=== PATIENT | female | born 1955 | race Caucasian/White ===

== ENCOUNTER → 2016-08-11 | Outpatient (CLI) | payer MEDICARE, BC ==
[2016-08-11 10:18] LABS: Basophils # (A) 0.1 k/uL (0-0.2); Basophils % (A) 1 %; CH 28.9; CHCM 34.1; Eosinophils # (A) 0.1 k/uL (0-0.7); Eosinophils % (A) 1 %; HCT 45.1 % (34.0-46.0); HDW 2.63; HGB 14.7 gm/dL (11.4-16.0); Luc # (Auto) 0.18; Luc % (Auto) 2; Lymphocytes # (A) 2.9 k/uL (1.0-4.8); Lymphocytes % (A) 31 %; MCH 27.9 pg (25.0-35.0); MCHC 32.7 g/dL (31.0-37.0); MCV 85.3 fL (80.0-100.0); Mean Platelet Volume 6.6; Monocytes # (A) 0.6 k/uL (0-1.0); Monocytes % (A) 6 %; Neutrophils # (A) 5.6 k/uL (1.3-7.7); Neutrophils % (A) 59 %; RBC 5.29 m/uL (3.80-5.40); RDW 13.7 % (11.5-15.5); WBC 9.4 k/uL (3.8-10.6); WBC (Perox) 9.72
[2016-08-11 10:33] LABS: ALT 66 U/L (9-52); AST 56 U/L (14-36); Alkaline Phosphatase 76 U/L (38-126); Anion Gap 9 mmol/L; Blood Urea Nitrogen 20 mg/dL (7-17); Calcium 9.3 mg/dL (8.4-10.2); Carbon Dioxide 28 mmol/L (22-30); Chloride 104 mmol/L (98-107); Glucose 94 mg/dL (74-99); Non-African American GFR(MDRD) >60 (>60 ml/min/1.73 sqM); Potassium 3.8 mmol/L (3.5-5.1); Sodium 141 mmol/L (137-145); Total Bilirubin 0.6 mg/dL (0.2-1.3); Total Protein 7.4 g/dL (6.3-8.2)
[2016-08-11 11:40] LABS: Cancer Anitgen 125 <5.5 U/mL (<35.1)
== END | disposition home or self-care (01) ==
LOC: LABWHC1 09:52
PROVIDERS: ATTEND Internal Medicine Medical Oncology
DX: C50.419 Malignant neoplasm of upper-outer quadrant of unspecified female breast (principal); D50.9 Iron deficiency anemia, unspecified; K90.9 Intestinal malabsorption, unspecified
CPT/HCPCS: 36415; 80053; 85025; 86300; 86304

== ENCOUNTER → 2016-09-02 | Outpatient (CLI) | payer MEDICARE, BC ==
[2016-09-02 10:38] VITALS: BP 126/78; PULSE 82; TEMP 98.2; BMI 42.0
--- NOTE | 2016-09-02 11:35 | P.GSHP ---
History of Present Illness H&P Date: 09/02/16 61 years old female underwent laparoscopic sleeve gastrectomy and laparoscopic cholecystectomy on 08/21/2013. Patient is concerned about her weight regain. She still has many family issues right now. Her has chron's disease and bladder cancer. Her son is being treated for active Chron's and Ank spon. She has 2 dogs that keep her busy all the time. Recent CPAP adjustments . She has intermittent dysphagia with sensation of food getting stuck mid chest. PRE OP VISIT 08/01/2013 BMI 48.15, weight 134.4 KG's, height 66 inches, [place] Body Weight: 62kgs POST OP VISIT#1 08/21/2013 BMI 44.4, weight 124.6 KG's POST OP VISIT#2 09/27/2013 BMI 42.5, weight 119.5 KG's POST OP VISIT#3 10/18/2013 BMI 42.2, weight 118.5 KG's POST OP VISIT#4 11/29/2013 BMI 40.5, weight 113.9 KG's POST OP VISIT#5 03/07/2014 BMI 39.4, weight 110.7KG's POST OP VISIT#6 05/23/2014 BMI 39.7, weight 111.5KG's POST OP VISIT#7 08/22/2014 BMI 40.6, weight 111.5KG's POST OP VISIT#8 09/02/2016 BMI 42, weight 119.79KG's Past Medical History Past Medical History: Asthma, GERD/Reflux, Hypertension, Osteoarthritis (OA), Sleep Apnea/CPAP/BIPAP Additional Past Medical History / Comment(s): PRECANCER CELLS RT BREAST. , migraines,. anemia History of Any Multi-Drug Resistant Organisms: None Reported Past Surgical History: Bariatric Surgery, Breast Surgery, Cholecystectomy, Orthopedic Surgery Additional Past Surgical History / Comment(s): rt breast biopsy,. bilat CTR. bariatric sleeve 08/21/13,. rt knee surgery scope. egd 11/2013 Past Anesthesia/Blood Transfusion Reactions: No Reported Reaction Past Psychological History: Depression Smoking Status: Never smoker Past Alcohol Use History: None Reported Past Drug Use History: None Reported - Past Family History Brother(s) Family Medical History: Cancer Additional Family Medical History / Comment(s): Brother of colon ca. Medications and Allergies Home Medications Medication Instructions Recorded Confirmed Type Enalapril [Vasotec] 20 mg PO DAILY 07/31/13 09/02/16 History Fluticasone/Salmeterol [Advair 1 puff INHALATION Q12HR PRN 07/31/13 09/02/16 History 250-50 Diskus] Topiramate 100 mg PO BID 07/31/13 09/02/16 History Venlafaxine HCl [Effexor] 225 mg PO DAILY 07/31/13 09/02/16 History clonazePAM [KlonoPIN] 0.5 mg PO HS 07/31/13 09/02/16 History Multivitamins, Thera [Multivitamin] 1 each PO DAILY 08/29/13 09/02/16 History Esomeprazole Magnesium [NexIUM] 1 tab PO DAILY 09/02/16 09/02/16 History Allergies Allergy/AdvReac Type Severity Reaction Status Date / Time dander Allergy sneezing Uncoded 09/02/16 10:22 and watery eyes hayfever Allergy sneezing Uncoded 09/02/16 10:22 and watery eyes pollen Allergy sneezing Uncoded 09/02/16 10:22 and watery eyes Surgical - Exam Vital Signs Temp Pulse BP 98.2 F 82 126/78 09/02/16 10:21 09/02/16 10:21 09/02/16 10:21 General: Patient is alert and oriented to time, place and person and cooperative with exam. She is not in acute distress. HEENT: No pallor, no icterus, no thyroid enlargement, no cervical lymphadenopathy. Chest: Bilateral equal breath sounds present. No wheezes, no crackles. Cardiovascular: Regular rate and rhythm. Abdomen: Soft, nontender, nondistended. Well-healed surgical scars . No incisional hernias. Integumentary: No skin rash Neurologic: Cranial nerves II-XII intact. Strength upper and lower extremities 5/5. No focal neurologic deficits. Gait is normal. Psychiatric: No anxiety or psychosis. No suicidal thoughts. Patient is stressed about her home situation . She reports low energy levels.She is tearful and crying Assessment and Plan (1) Asthma Status: Chronic (2) Back pain, chronic Status: Chronic (3) Depression Status: Chronic (4) GERD (gastroesophageal reflux disease) Status: Chronic (5) Hypertension Status: Chronic (6) Morbid obesity with BMI of 40.0-44.9, adult Status: Chronic (7) Sleep apnea Status: Chronic Plan: 1. Dietary counselling. Decrease carbs and increase proteins 2. Continue daily MVI 3. Food diary 4. EGD with possible bx 5. Repeat labs 6. Continue CPAP with adjustments
== END | disposition home or self-care (01) ==
LOC: BARWHC3 09:28
PROVIDERS: ATTEND Surgery
DX: E66.01 Morbid (severe) obesity due to excess calories (principal); G47.30 Sleep apnea, unspecified; J45.909 Unspecified asthma, uncomplicated; F32.9 Major depressive disorder, single episode, unspecified; K21.9 Gastro-esophageal reflux disease without esophagitis; I10 Essential (primary) hypertension; M54.9 Dorsalgia, unspecified; Z68.41 Body mass index [BMI] 40.0-44.9, adult; Z98.84 Bariatric surgery status; Z79.899 Other long term (current) drug therapy
CPT/HCPCS: 99211

== ENCOUNTER → 2016-09-07 | Outpatient (CLI) | payer MEDICARE, BC ==
--- NOTE | 2016-09-07 12:26 | ECHOS ---
DATE OF SERVICE: 09/07/2016 AGE: 61Y SEX: F HT: 67 WT: 260 lbs. Protocol Jackson: X Others: Stress Echo Stage: III Dur. of Exercise: 7:45 *Heart Rate Blood Pressure *Rest: 79 Rest: 117/42 * *Max. Achieved: 141 Maximum BP: 187/62 85% PMHR: 134 100% PMHR: 158 *METS: 8.6 INDICATIONS: Dyspnea. MEDICATIONS: Effexor, Klonopin, Topamax. Patient was exercised for a total period of 7 minutes and 45 seconds. Peak heart rate of 141 was achieved. Maximum blood pressure of 187/62 mmHg was noted. Resting EKG shows normal sinus rhythm with normal PA interval and QRS duration and normal ST-T waves. No ST segment depression suggestive of ischemia is noted. Baseline echocardiographic images reveal normal left ventricular chamber size with normal left ventricular systolic function. In the immediate postexercise period, normal increase in the wall thickness and contractility is noted. FINAL IMPRESSION: This stress echocardiographic study is negative for stress-induced ischemia. EKG portion of the stress test is not suggestive of ischemia. Patient's exercise tolerance is average.
== END | disposition home or self-care (01) ==
LOC: RADNMMAIN 09:51
PROVIDERS: ATTEND Family Medicine
DX: R06.09 Other forms of dyspnea (principal)
CPT/HCPCS: 93017; 93350

== ENCOUNTER 2016-10-07 09:16 | Day surgery (SDC) | payer MEDICARE, BC ==
[2016-10-06 10:00] VITALS: BMI 41.9
[~2016-10-07 09:16] MED LIST: LACTATED RINGERS 1,000 ML IV SCH; LIDOCAINE 1% 20 ML VIAL (10MG/ML) FOR IV START INTRADERMA PRN
[2016-10-07 09:28] VITALS: RESP 18; TEMP 98
[2016-10-07] MEDS ORDERED: LACTATED RINGERS 1,000 ML IV ONE (09:28)
[2016-10-07] MEDS ORDERED: LIDOCAINE 1% INJ 10MG/ML (20 ML MDV) ONE (09:42)
[2016-10-07] MEDS ORDERED: PROPOFOL 10 MG/ML 20 ML VIAL IV ONE (09:42)
--- NOTE | 2016-10-07 09:46 | P.GSHP ---
History of Present Illness H&P Date: 10/07/16 61 years old female underwent laparoscopic sleeve gastrectomy and laparoscopic cholecystectomy on 08/21/2013. Patient is concerned about her weight regain. She still has many family issues right now. Her has chron's disease and bladder cancer. Her son is being treated for active Chron's and Ank spon. She has 2 dogs that keep her busy all the time. Recent CPAP adjustments . She has intermittent dysphagia with sensation of food getting stuck mid chest. PRE OP VISIT 08/01/2013 BMI 48.15, weight 134.4 KG's, height 66 inches, [place] Body Weight: 62kgs POST OP VISIT#1 08/21/2013 BMI 44.4, weight 124.6 KG's POST OP VISIT#2 09/27/2013 BMI 42.5, weight 119.5 KG's POST OP VISIT#3 10/18/2013 BMI 42.2, weight 118.5 KG's POST OP VISIT#4 11/29/2013 BMI 40.5, weight 113.9 KG's POST OP VISIT#5 03/07/2014 BMI 39.4, weight 110.7KG's POST OP VISIT#6 05/23/2014 BMI 39.7, weight 111.5KG's POST OP VISIT#7 08/22/2014 BMI 40.6, weight 111.5KG's POST OP VISIT#8 09/02/2016 BMI 42, weight 119.79KG's Past Medical History Past Medical History: Asthma, GERD/Reflux, Hypertension, Osteoarthritis (OA), Sleep Apnea/CPAP/BIPAP Additional Past Medical History / Comment(s): PRECANCER CELLS RT BREAST. , migraines,. anemia History of Any Multi-Drug Resistant Organisms: None Reported Past Surgical History: Bariatric Surgery, Breast Surgery, Cholecystectomy, Orthopedic Surgery Additional Past Surgical History / Comment(s): rt breast biopsy,. bilat CTR. bariatric sleeve 08/21/13,. rt knee surgery scope. egd 11/2013 Past Anesthesia/Blood Transfusion Reactions: No Reported Reaction Past Psychological History: Depression Smoking Status: Never smoker Past Alcohol Use History: None Reported Past Drug Use History: None Reported - Past Family History Brother(s) Family Medical History: Cancer Additional Family Medical History / Comment(s): Brother of colon ca. Medications and Allergies Home Medications Medication Instructions Recorded Confirmed Type Enalapril [Vasotec] 20 mg PO DAILY 07/31/13 09/02/16 History Fluticasone/Salmeterol [Advair 1 puff INHALATION Q12HR PRN 07/31/13 09/02/16 History 250-50 Diskus] Topiramate 100 mg PO BID 07/31/13 09/02/16 History Venlafaxine HCl [Effexor] 225 mg PO DAILY 07/31/13 09/02/16 History clonazePAM [KlonoPIN] 0.5 mg PO HS 07/31/13 09/02/16 History Multivitamins, Thera [Multivitamin] 1 each PO DAILY 08/29/13 09/02/16 History Esomeprazole Magnesium [NexIUM] 1 tab PO DAILY 09/02/16 09/02/16 History Allergies Allergy/AdvReac Type Severity Reaction Status Date / Time dander Allergy sneezing Uncoded 09/02/16 10:22 and watery eyes hayfever Allergy sneezing Uncoded 09/02/16 10:22 and watery eyes pollen Allergy sneezing Uncoded 09/02/16 10:22 and watery eyes Surgical - Exam General: Patient is alert and oriented to time, place and person and cooperative with exam. She is not in acute distress. HEENT: No pallor, no icterus, no thyroid enlargement, no cervical lymphadenopathy. Chest: Bilateral equal breath sounds present. No wheezes, no crackles. Cardiovascular: Regular rate and rhythm. Abdomen: Soft, nontender, nondistended. Well-healed surgical scars . No incisional hernias. Integumentary: No skin rash Neurologic: Cranial nerves II-XII intact. Strength upper and lower extremities 5/5. No focal neurologic deficits. Gait is normal. Psychiatric: No anxiety or psychosis. No suicidal thoughts. Patient is stressed about her home situation . She reports low energy levels.She is tearful and crying Assessment and Plan (1) Asthma Status: Chronic (2) Back pain, chronic Status: Chronic (3) Depression Status: Chronic (4) GERD (gastroesophageal reflux disease) Status: Chronic (5) Hypertension Status: Chronic (6) Morbid obesity with BMI of 40.0-44.9, adult Status: Chronic (7) Sleep apnea Status: Chronic Plan: 1. Dietary counselling. Decrease carbs and increase proteins 2. Continue daily MVI 3. Food diary 4. EGD with possible bx 5. Repeat labs 6. Continue CPAP with adjustments Past Medical History Past Medical History: Asthma, GERD/Reflux, Hypertension, Osteoarthritis (OA), Sleep Apnea/CPAP/BIPAP Additional Past Medical History / Comment(s): having increased reflux, PRECANCER CELLS RT BREAST, migraines, anemia History of Any Multi-Drug Resistant Organisms: None Reported Past Surgical History: Bariatric Surgery, Breast Surgery, Cholecystectomy, Orthopedic Surgery Additional Past Surgical History / Comment(s): rt breast biopsy,. bilat CTR. bariatric sleeve 08/21/13,. rt knee surgery scope. egd 11/2013 Past Anesthesia/Blood Transfusion Reactions: No Reported Reaction Smoking Status: Never smoker - Past Family History Brother(s) Family Medical History: Cancer Additional Family Medical History / Comment(s): Brother of colon ca. Medications and Allergies Home Medications Medication Instructions Recorded Confirmed Type Enalapril [Vasotec] 20 mg PO QAM 07/31/13 10/06/16 History Fluticasone/Salmeterol [Advair 1 puff INHALATION Q12HR PRN 07/31/13 10/06/16 History 250-50 Diskus] Topiramate 100 mg PO BID 07/31/13 10/06/16 History Venlafaxine HCl [Effexor] 150 mg PO QAM 07/31/13 10/06/16 History clonazePAM [KlonoPIN] 0.5 mg PO HS 07/31/13 10/06/16 History Multivitamins, Thera [Multivitamin] 1 each PO DAILY 08/29/13 10/06/16 History Esomeprazole Magnesium [NexIUM] 20 mg PO DAILY 09/02/16 10/07/16 History Venlafaxine HCl [Effexor] 75 mg PO HS 10/06/16 10/06/16 History Allergies Allergy/AdvReac Type Severity Reaction Status Date / Time sulfamethoxazole AdvReac Nausea & Verified 10/06/16 09:52 [From Bactrim] Vomiting trimethoprim [From Bactrim] AdvReac Nausea & Verified 10/06/16 09:52 Vomiting dander Allergy sneezing Uncoded 10/06/16 09:52 and watery eyes hayfever Allergy sneezing Uncoded 10/06/16 09:52 and watery eyes pollen Allergy sneezing Uncoded 10/06/16 09:52 and watery eyes Surgical - Exam Vital Signs Temp Pulse Resp BP Pulse Ox 98.0 F 89 18 141/89 97 10/07/16 09:27 10/07/16 09:27 10/07/16 09:27 10/07/16 09:27 10/07/16 09:27
--- NOTE | 2016-10-07 10:01 | P.OP ---
Date of Procedure: 10/07/16 Preoperative Diagnosis: Dysphagia Status post sleeve gastrectomy in 2013 Postoperative Diagnosis: Same Procedure(s) Performed: Esophagogastroduodenoscopy Implants: NA Anesthesia: MAC Surgeon: Linda Ellison Pathology: none sent Condition: stable Disposition: PACU Indications for Procedure: 61 years old female status post sleeve gastrectomy in 2014 presents with dysphagia. Informed consent obtained and patient elected to undergo EGD with possible biopsy. Operative Findings: Normal EGD. No reflux esophagitis. No obstruction. Description of Procedure: A timeout was performed to verify the correct patient and correct procedure. Patient was on continuous vitals and pulse ox monitoring throughout the procedure. She was placed in lateral decubitus position and an oral bite block was inserted. A well-lubricated Olympus upper endoscope was passed orally. The esophagus was intubated without difficulty. The vocal cords were visualised and protected at all times. The endoscope was passed beyond the pylorus into the first and second portion of the duodenum. No abnormality was noted in the duodenum mucosa. No mass, active ulcer or bleeding stigmata noted within the gastric lumen. The staple line was well healed. The GE junction is measured at 38 cm from the incisors . No evidence of reflux esophagitis. The endoscope was gradually withdrawn. No abnormality identified in the esophagus. Patient tolerated the procedure well and was taken to post anesthesia care unit in stable condition.
[2016-10-07 10:22] VITALS: BP 116/74; PULSE 63
== END 2016-10-07 10:40 | disposition home or self-care (01) ==
LOC: ORWHC2ENDO 09:16
PROVIDERS: ATTEND Surgery
DX: R13.10 Dysphagia, unspecified (principal); K21.9 Gastro-esophageal reflux disease without esophagitis; Z98.84 Bariatric surgery status; I10 Essential (primary) hypertension; G47.33 Obstructive sleep apnea (adult) (pediatric); Z99.89 Dependence on other enabling machines and devices; Z79.899 Other long term (current) drug therapy; Z88.2 Allergy status to sulfonamides
CPT/HCPCS: 43235; J2001; J2704

== ENCOUNTER → 2017-02-16 | Outpatient (CLI) | payer MEDICARE, BC ==
--- NOTE | 2017-02-16 09:47 | US ---
EXAMINATION TYPE: US abdomen complete DATE OF EXAM: 02/16/2017 COMPARISON: RENAL US CLINICAL HISTORY: R10.9 ABD PAIN. Patient stated has intermittent suprapubic pain; family HX of colon CA; on medication for HTN, depression, headaches, restless legs and takes a diuretic; gallbladder re moved; left renal cyst. EXAM MEASUREMENTS: Liver Length: 16.8 cm Gallbladder Wall: surgically removed CBD: 1.5 cm Spleen: 9.0 cm Right Kidney: 11.7 x 5.4 x 4.4 cm Left Kidney: 11.3 x 5.8 x 5.9 cm Pancreas: hyperechoic, tail obscured by overlying bowel gas Liver: fatty as is hyperechoic to right renal cortex and liver is attenuated posteriorly Gallbladder: surgically absent Evidence for sonographic Cardenas's sign: No CBD: wnl Spleen: wnl Right Kidney: No hydronephrosis or masses seen Left Kidney: exophytic upper pole cyst = 2.2 x 1.9 x 1.5cm Upper IVC: wnl Abd Aorta: size is wnl Suprapubic region at area of pain: no masses are seen, just overlying bowel gas is noted. IMPRESSION: 1. Hepatic steatosis versus diffuse hepatocellular disease. 2. Exophytic cyst upper pole left kidney.
--- NOTE | 2017-02-16 09:50 | US ---
EXAMINATION TYPE: US pelvic complete DATE OF EXAM: 02/16/2017 COMPARISON: US CLINICAL HISTORY: R10.9 ABD PAIN. Patient stated has intermittent suprapubic pain; family history of colon CA; ; post menopausal TECHNIQUE: Transvaginal (TV) as patient chose to have TV US instead of waiting for full bladder prep aration since bladder was nearly empty Date of LMP: NA EXAM MEASUREMENTS: Uterus: 7.1 x 3.9 x 2.7 cm Endometrial Stripe: 0.4 cm Right Ovary: 2.3 x 1.6 x 1.4 cm Left Ovary: not visualized 1. Uterus: Anteverted; hypoechoic oval area = 0.3 x 0.2 x 0.2cm is noted upper right myometrium and may be small uterine fibroid vs. complex cyst; multiple Nabothian cysts imaged in cervix and largest = 0.8 x 0.7 x 0.6cm 2. Endometrium: thickness is wnl post menopausal 3. Right Ovary: wnl; adjacent peristalsing bowel is noted 4. Left Ovary: not seen 5. Bilateral Adnexa: wnl 6. Posterior cul-de-sac: wnl IMPRESSION: 1. Small probable uterine leiomyoma versus a myometrial cyst. Cervical nabothian cysts. 2. Poor visualization of the left ovary.
== END | disposition home or self-care (01) ==
LOC: RADUSWWP 07:26
PROVIDERS: ATTEND Family Medicine
DX: N28.1 Cyst of kidney, acquired (principal); N88.8 Other specified noninflammatory disorders of cervix uteri
CPT/HCPCS: 76700; 76830

== ENCOUNTER → 2018-10-04 | Outpatient (CLI) | payer MEDICARE, BC ==
[2018-10-04 09:49] LABS: HCT 44.4 % (34.0-46.0); HGB 14.8 gm/dL (11.4-16.0); MCH 27.4 pg (25.0-35.0); MCHC 33.4 g/dL (31.0-37.0); MCV 81.9 fL (80.0-100.0); Mean Platelet Volume 6.5; Platelet Count 286 k/uL (150-450); RBC 5.42 m/uL (3.80-5.40); RDW 13.8 % (11.5-15.5); WBC 13.4 k/uL (3.8-10.6)
[2018-10-04 17:19] LABS: African American GFR (CKD) 78.3 (60.0-200.0); Albumin 4.6 g/dL (3.80-4.90); Anion Gap 14.9 mmol/L (4.00-12.00); BUN/Creat Ratio 18.89 Ratio (12.00-20.00); Calcium 9.4 mg/dL (8.7-10.3); Carbon Dioxide 22.1 mmol/L (21.6-31.8); Globulin 2.3 g/dL (1.6-3.3); Potassium 3.7 mmol/L (3.5-5.5); Total Bilirubin 0.4 mg/dL (0.3-1.2); Total Protein 6.9 g/dL (6.2-8.2)
[2018-10-04 17:23] LABS: Iron Saturation 28.62 (12.00-45.00)
[2018-10-04 17:26] LABS: T4, Free (Free Thyroxine) 1.2 ng/dL (0.80-1.80)
[2018-10-04 18:22] LABS: ACTH 14.6 pg/mL (0.00-45.99)
== END | disposition home or self-care (01) ==
LOC: LABWHC1 09:25
PROVIDERS: ATTEND Internal Medicine Endocrinology, Diabetes & Metabolism
DX: E27.3 Drug-induced adrenocortical insufficiency (principal); R53.83 Other fatigue; E61.1 Iron deficiency
CPT/HCPCS: 36415; 80053; 82024; 82533; 82607; 83540; 83550; 84439; 84443; 84481; 85027

== ENCOUNTER → 2018-12-22 | Outpatient (CLI) | payer MEDICARE, BC | END | disposition home or self-care (01) | LOC: LABWHC1 09:47 | PROVIDERS: ATTEND Internal Medicine Endocrinology, Diabetes & Metabolism | DX: E27.3 Drug-induced adrenocortical insufficiency (principal) | CPT/HCPCS: 36415; 82024; 82533 ==

== ENCOUNTER 2019-02-08 05:00 | Emergency (ER) | payer MEDICARE, BC ==
[2019-02-08 05:09] VITALS: RESP 18; TEMP 98.3
--- NOTE | 2019-02-08 05:57 | ED ---
Back Pain HPI - General Chief Complaint: Back Pain/Injury Stated Complaint: Headache, Back Pain Time Seen by Provider: 02/08/19 05:09 Source: patient Limitations: physical limitation - History of Present Illness Initial Comments: Alycia is a 63-year-old female who presents the ER today for evaluation of drainage from surgical incision. Patient reports that she had spinal surgery on January 19, she reports she's been healing well and doing well since the surgery. She only taken minimal pain medications. Patient reports that yesterday she noted some drainage from the lower part of her incision. She reports that throughout the day today she's had worsening pain around the incision, she's been unable to lay flat on her back secondary to pain. She reports she's had to change her pants twice due to drainage onto the back of her pants. Patient became concerned that she may have an infection so she came to the ER for further evaluation. Patient reports subjective fever but no measured fever, she also reports chills. - Related Data Home Medications Medication Instructions Recorded Confirmed Topiramate 100 mg PO BID 07/31/13 02/08/19 Atorvastatin [Lipitor] 20 mg PO DAILY 02/08/19 02/08/19 Enalapril [Vasotec] 5 mg PO DAILY 02/08/19 02/08/19 Esomeprazole Magnesium [NexIUM] 40 mg PO DAILY 02/08/19 02/08/19 Methocarbamol [Robaxin] 750 mg PO Q6HR PRN 02/08/19 02/08/19 Naproxen Sodium [Aleve] 440 mg PO DAILY PRN 02/08/19 02/08/19 Spironolactone 100 mg PO DAILY 02/08/19 02/08/19 Triamterene/Hydrochlorothiazid 1 tab PO DAILY 02/08/19 02/08/19 [Triamterene-Hctz 37.5-25 mg Tb] Venlafaxine HCl [Effexor XR] 300 mg PO DAILY 02/08/19 02/08/19 Previous Rx's Medication Instructions Recorded Cephalexin [Keflex] 500 mg PO Q6HR #28 cap 02/08/19 Allergies Allergy/AdvReac Type Severity Reaction Status Date / Time sulfamethoxazole AdvReac Nausea & Verified 02/08/19 07:23 [From Bactrim] Vomiting trimethoprim [From Bactrim] AdvReac Nausea & Verified 02/08/19 07:23 Vomiting dander Allergy sneezing Uncoded 10/06/16 09:52 and watery eyes hayfever Allergy sneezing Uncoded 02/08/19 05:09 and watery eyes pollen Allergy sneezing Uncoded 02/08/19 05:09 and watery eyes Review of Systems ROS Statement: Those systems with pertinent positive or pertinent negative responses have been documented in the HPI. ROS Other: All systems not noted in ROS Statement are negative. Past Medical History Past Medical History: Asthma, GERD/Reflux, Hypertension, Osteoarthritis (OA), Sleep Apnea/CPAP/BIPAP Additional Past Medical History / Comment(s): having increased reflux, PRECANCER CELLS RT BREAST, migraines, anemia History of Any Multi-Drug Resistant Organisms: None Reported Past Surgical History: Bariatric Surgery, Breast Surgery, Cholecystectomy, Orthopedic Surgery Additional Past Surgical History / Comment(s): rt breast biopsy,. bilat CTR. bariatric sleeve 08/21/13,. rt knee surgery scope. egd 11/2013 Past Anesthesia/Blood Transfusion Reactions: No Reported Reaction Past Psychological History: Depression Smoking Status: Never smoker Past Alcohol Use History: None Reported Past Drug Use History: None Reported - Past Family History Brother(s) Family Medical History: Cancer Additional Family Medical History / Comment(s): Brother of colon ca. General Exam - General Exam Comments Initial Comments: Physical Exam GENERAL: Patient is well-developed and well-nourished. appears uncomfortable HENT: Normocephalic, Atraumatic. EYES: PERRL, EOMI PULMONARY: Unlabored respirations. No audible rales rhonchi or wheezing was noted. CARDIOVASCULAR: There is a regular rate and rhythm without any murmurs gallops or rubs. ABDOMEN: Soft and nontender with normal bowel sounds. Obese SKIN: Well healing midline surgical incision over the lumbar spine, the lower one and a half centimeters of the incision is open with some minimal surrounding erythema, there is no purulence or malodorous discharge noted Copious amounts of serosanguineous discharge noted on patient's clothing : Deferred NEUROLOGIC: Patient is alert and oriented x3. Moving all extremities spontaneously MUSCULOSKELETAL: Normal extremities with adequate strength and full range of motion. No lower extremity swelling or edema. No calf tenderness. PSYCHIATRIC: Normal psychiatric evaluation. Limitations: physical limitation Course Vital Signs 02/08/19 02/08/19 02/08/19 05:01 08:24 09:00 Temperature 98.3 F Pulse Rate 98 78 78 Respiratory 18 18 18 Rate Blood Pressure 131/85 111/53 128/70 O2 Sat by Pulse 100 100 100 Oximetry 02/08/19 02/08/19 11:00 12:00 Temperature Pulse Rate 78 70 Respiratory 18 18 Rate Blood Pressure 138/70 154/70 O2 Sat by Pulse 100 100 Oximetry Medical Decision Making - Medical Decision Making The patient was seen and evaluated, history is obtained from the patient, family member at bedside and medical records which show patient has at bedside as well Patient with drainage from her lumbar spinal surgery incision. There is minimal surrounding erythema, no malodorous discharge, no obvious purulent however given the patient's complaints a septic workup and computed tomography scan with contrast will be ordered. Labs resulted with significant leukocytosis, very mild lactic acidosis. Given these findings alone decision was made to treat empirically with antibiotics. Broad-spectrum antibiotics vancomycin and cefepime were ordered. The patient was also noted to have some elevated BUN and creatinine, additional IV fluids were ordered prior to computed tomography scan of the lumbar spine with contrast. CT imaging resulted with expected postsurgical changes, no signs of significant inflammation or abscess formation. Patient's surgeon Dr. Darryl Dupont was contacted. Labs and imaging results were discussed with Dr. Dupont. With the patient'S permission, photographs were taken of her incision and transmitted to her surgeon. He evaluated the sudden photographs and agreed with plan for IV antibiotics in the emergency Department, discharged home on oral Keflex, advised her to contact his office on Wednesday morning for follow-up. This plan was discussed with the patient who is in agreement and expressed relief that she did not have to be transferred to [facility] at this time. All questions pertaining care were answered, return parameters were discussed and the patient was discharged home in stable cond ition. - Lab Data Result diagrams: 02/08/19 05:57 02/08/19 05:57 Lab Results 02/08/19 02/08/19 02/08/19 Range/Units 05:54 05:57 05:57 WBC 22.8 H (3.8-10.6) k/uL RBC 5.19 (3.80-5.40) m/uL Hgb 15.0 (11.4-16.0) gm/dL Hct 42.5 (34.0-46.0) % MCV 81.9 (80.0-100.0) fL MCH 28.8 (25.0-35.0) pg MCHC 35.2 (31.0-37.0) g/dL RDW 13.2 (11.5-15.5) % Plt Count 286 (150-450) k/uL Neutrophils % 81 % Lymphocytes % 12 % Monocytes % 3 % Eosinophils % 3 % Basophils % 0 % Neutrophils # 18.3 H (1.3-7.7) k/uL Lymphocytes # 2.6 (1.0-4.8) k/uL Monocytes # 0.7 (0-1.0) k/uL Eosinophils # 0.7 (0-0.7) k/uL Basophils # 0.1 (0-0.2) k/uL Sodium 139 (137-145) mmol/L Potassium 4.1 (3.5-5.1) mmol/L Chloride 101 (98-107) mmol/L Carbon Dioxide 24 (22-30) mmol/L Anion Gap 14 mmol/L BUN 31 H (7-17) mg/dL Creatinine 1.20 H (0.52-1.04) mg/dL Est GFR (CKD-EPI)AfAm 55 (>60 ml/min/1.73 sqM) Est GFR (CKD-EPI)NonAf 48 (>60 ml/min/1.73 sqM) Glucose 150 H (74-99) mg/dL Lactic Ac Sepsis Rflx Plasma Lactic Acid Nikhil (0.7-2.0) mmol/L Calcium 9.7 (8.4-10.2) mg/dL Total Bilirubin 1.0 (0.2-1.3) mg/dL AST 25 (14-36) U/L ALT 31 (9-52) U/L Alkaline Phosphatase 77 (38-126) U/L Total Protein 7.6 (6.3-8.2) g/dL Albumin 4.3 (3.5-5.0) g/dL Urine Color Yellow Urine Appearance Cloudy H (Clear) Urine pH 5.5 (5.0-8.0) Ur Specific [place] 1.036 H (1.001-1.035) Urine Protein Trace H (Negative) Urine Glucose (UA) Negative (Negative) Urine Ketones Trace H (Negative) Urine Blood Negative (Negative) Urine Nitrite Negative (Negative) Urine Bilirubin Negative (Negative) Urine Urobilinogen 2.0 (<2.0) mg/dL Ur Leukocyte Esterase Moderate H (Negative) Ur Squamous Epith Cells <1 (0-4) /hpf 02/08/19 02/08/19 Range/Units 05:57 06:33 WBC (3.8-10.6) k/uL RBC (3.80-5.40) m/uL Hgb (11.4-16.0) gm/dL Hct (34.0-46.0) % MCV (80.0-100.0) fL MCH (25.0-35.0) pg MCHC (31.0-37.0) g/dL RDW (11.5-15.5) % Plt Count (150-450) k/uL Neutrophils % % Lymphocytes % % Monocytes % % Eosinophils % % Basophils % % Neutrophils # (1.3-7.7) k/uL Lymphocytes # (1.0-4.8) k/uL Monocytes # (0-1.0) k/uL Eosinophils # (0-0.7) k/uL Basophils # (0-0.2) k/uL Sodium (137-145) mmol/L Potassium (3.5-5.1) mmol/L Chloride (98-107) mmol/L Carbon Dioxide (22-30) mmol/L Anion Gap mmol/L BUN (7-17) mg/dL Creatinine (0.52-1.04) mg/dL Est GFR (CKD-EPI)AfAm (>60 ml/min/1.73 sqM) Est GFR (CKD-EPI)NonAf (>60 ml/min/1.73 sqM) Glucose (74-99) mg/dL Lactic Ac Sepsis Rflx Y Plasma Lactic Acid Nikhil 2.4 H* (0.7-2.0) mmol/L Calcium (8.4-10.2) mg/dL Total Bilirubin (0.2-1.3) mg/dL AST (14-36) U/L ALT (9-52) U/L Alkaline Phosphatase (38-126) U/L Total Protein (6.3-8.2) g/dL Albumin (3.5-5.0) g/dL Urine Color Urine Appearance (Clear) Urine pH (5.0-8.0) Ur Specific [place] (1.001-1.035) Urine Protein (Negative) Urine Glucose (UA) (Negative) Urine Ketones (Negative) Urine Blood (Negative) Urine Nitrite (Negative) Urine Bilirubin (Negative) Urine Urobilinogen (<2.0) mg/dL Ur Leukocyte Esterase (Negative) Ur Squamous Epith Cells (0-4) /hpf Disposition Clinical Impression: Post-operative pain Disposition: HOME SELF-CARE Condition: Stable Instructions (If sedation given, give patient instructions): Cellulitis (DC) Additional Instructions: Call Dr Dupont's office on Wednesday morning to arrange follow up Prescriptions: Cephalexin [Keflex] 500 mg PO Q6HR #28 cap Is patient prescribed a controlled substance at d/c from ED?: No Referrals: Carter Sarmiento MD [Primary Care Provider] - 1-2 days
[2019-02-08] MEDS: SODIUM CHLORIDE 0.9% 500 ML 500 ML IV SCH (06:08)
[2019-02-08 06:17] LABS: Basophils # (A) 0.1 k/uL (0-0.2); Basophils % (A) 0 %; Eosinophils # (A) 0.7 k/uL (0-0.7); Eosinophils % (A) 3 %; HCT 42.5 % (34.0-46.0); Lymphocytes # (A) 2.6 k/uL (1.0-4.8); Lymphocytes % (A) 12 %; MCH 28.8 pg (25.0-35.0); MCHC 35.2 g/dL (31.0-37.0); MCV 81.9 fL (80.0-100.0); Mean Platelet Volume 5.9; Monocytes # (A) 0.7 k/uL (0-1.0); Monocytes % (A) 3 %; Neutrophils # (A) 18.3 k/uL (1.3-7.7); Neutrophils % (A) 81 %; Platelet Count 286 k/uL (150-450); RBC 5.19 m/uL (3.80-5.40); RDW 13.2 % (11.5-15.5); WBC 22.8 k/uL (3.8-10.6)
[2019-02-08 06:25] LABS: Appearance,Urine Cloudy (Clear); Bilirubin,Urine Negative (Negative); Blood,Urine Negative (Negative); Color,Urine Yellow; Glucose,Urine (UA) Negative (Negative); Ketones,Urine Trace (Negative); Leukocyte Esterase,Urine Moderate (Negative); Nitrite,Urine Negative (Negative); PH, Urine 5.5 (5.0-8.0); Protein,Urine Trace (Negative); Specific Gravity,Urine 1.036 (1.001-1.035); Squamous Epithelial Cell,Urine <1 /hpf (0-4)
[2019-02-08 06:29] LABS: Albumin 4.3 g/dL (3.5-5.0); Calcium 9.7 mg/dL (8.4-10.2); Potassium 4.1 mmol/L (3.5-5.1); Total Protein 7.6 g/dL (6.3-8.2)
[2019-02-08] MEDS ORDERED: SODIUM CHLORIDE 0.9% 1,000 ML IV ONE (06:36)
[2019-02-08] MEDS ORDERED: CEFEPIME 1 GM in SODIUM CHLORIDE 0.9% 50 ML IVPB STA (06:37)
[2019-02-08] MEDS ORDERED: VANCOMYCIN IV PER PHARMACY 1 EACH MISC MISCELLANE PRN (06:37)
[2019-02-08] MEDS ORDERED: VANCOMYCIN 1,750 MG in SODIUM CHLORIDE 0.9% 500 ML 500 ML IVPB STA (06:39)
--- NOTE | 2019-02-08 07:08 | CT ---
EXAMINATION TYPE: CT lumbar spine w con DATE OF EXAM: 02/08/2019 COMPARISON: None HISTORY: low back pain, drainage from surgical site, back surgery [address] DLP: 2294.6 mGycm Automated exposure control for dose reduction was used. CONTRAST: CT scan of the lumbar is performed with IV Contrast, patient injected with 100 mL of Isovue 300. Multiple axial sections were obtained from T12 to S2 vertebra without contrast. There is laminectomy defect at L2 L3 L4 levels. There is subcutaneous fluid over the posterior lumbar spine from recent surgery. There is no compression fracture. There is no subluxation. There is vacuu m disc at L3-4 L4-5 and L5-S1. There is mild hypertrophic facet arthropathy in the mid and lower lumb ar spine. I see no focal bone destruction. There is no lumbar paraspinal mass. There are moderate pos terior calcified disc herniations at L2-3 L3-4. I see no pathologic enhancement. IMPRESSION: Postsurgical changes with subcutaneous fluid and edema over the posterior lumbar spine. Multilevel la minectomy. No evidence for epidural abscess at the surgery sites. Large posterior disc herniations. N o fracture. No sign of osteomyelitis. No paraspinal abscess.
[2019-02-08 12:02] VITALS: BP 154/70; PULSE 70
[2019-02-09] MEDS ORDERED: VANCOMYCIN 1,750 MG in SODIUM CHLORIDE 0.9% 500 ML 500 ML IVPB SCH (06:00)
== END 2019-02-08 12:00 | disposition home or self-care (01) ==
LOC: EC 05:00
DX: G89.18 Other acute postprocedural pain (principal); M54.9 Dorsalgia, unspecified; L76.82 Other postprocedural complications of skin and subcutaneous tissue; D72.829 Elevated white blood cell count, unspecified; E87.2 Acidosis; R79.89 Other specified abnormal findings of blood chemistry; K21.9 Gastro-esophageal reflux disease without esophagitis; I10 Essential (primary) hypertension; M19.90 Unspecified osteoarthritis, unspecified site; G47.30 Sleep apnea, unspecified; F32.9 Major depressive disorder, single episode, unspecified; Z88.2 Allergy status to sulfonamides; Z91.048 Other nonmedicinal substance allergy status; Z79.1 Long term (current) use of non-steroidal anti-inflammatories (NSAID); Z79.899 Other long term (current) drug therapy; Z86.69 Personal history of other diseases of the nervous system and sense organs; Z99.89 Dependence on other enabling machines and devices
CPT/HCPCS: 36415; 80053; 83605; 85025; 81001; 87040; 87077; 87186; 72132; 99284; 96365; 96367; 96366 ×2; 96361; J3370; J0692; Q9967

== ENCOUNTER → 2019-04-12 | Outpatient (CLI) | payer MEDICARE, BC ==
[2019-04-12 13:08] VITALS: BP 101/71; PULSE 83; RESP 16; TEMP 98.3; BMI 41.8
--- NOTE | 2019-04-12 14:00 | P.HPBAR ---
Bariatric H&P - History & Physicial H&P Date: 04/12/19 History & Physicial: Visit/CC: Sleeve f/u /Dr. Ellison Patient initial contact: Initial weight: 134.445 kg Initial weight in pounds: 296.40 Height: 5 ft 6.5 in Initial BMI: 47.1 Last weight: Current weight: 119.295 kg Current weight in pounds: 263.00 Current BMI: 41.8 [place] body weight (based on NIH guidelines): 60.101 kg Excess body weight loss: 20.3% The patient is a 63 year-old F who presents for Bariatric Assessment. HPI: Dr. Ellison did sleeve, 2013. Her highest weight was 303 pounds. Lowest weight was 240 pounds. She had back surgery with steroids. She reports heartburn that was present before and after surgery. She reports her reflux disease is worse. Her gallbladder was removed at the time of her bariatric surgery. She reports epigastric pain that is moderate to severe after eating. She uses a heating pad for comfort. She tried a probiotic that helps. She reports having diarrhea now. Her last colonoscopy was over 6 to 7 years ago. She is due for colonoscopy. Her brother of colon cancer. She reports numbness of the right leg that was present. She reports poor memory. She is not taking her multivitamin. Her protein intake is low. She reports social stressors. ASSESSMENT: 1. Morbid obeity PLAN: 1. Get bariatric labs. 2. Due for a colonoscopy screen 3. Recommend upper scope. Past Medical History Past Medical History: Asthma, GERD/Reflux, Hypertension, Osteoarthritis (OA), Sleep Apnea/CPAP/BIPAP Additional Past Medical History / Comment(s): having increased reflux, PRECANCER CELLS RT BREAST, migraines, anemia History of Any Multi-Drug Resistant Organisms: None Reported Past Surgical History: Bariatric Surgery, Breast Surgery, Cholecystectomy, Orthopedic Surgery Additional Past Surgical History / Comment(s): rt breast biopsy,. bilat CTR. bariatric sleeve 08/21/13,. rt knee surgery scope. egd 11/2013. 01/18/19: L4-5-6 laminectomies Past Anesthesia/Blood Transfusion Reactions: No Reported Reaction Past Psychological History: Depression Smoking Status: Never smoker Past Alcohol Use History: None Reported Past Drug Use History: None Reported - Past Family History Brother(s) Family Medical History: Cancer Additional Family Medical History / Comment(s): Brother of colon ca. Surgical - Exam Vital Signs Temp Pulse Resp BP 98.3 F 83 16 101/71 04/12/19 13:05 04/12/19 13:05 04/12/19 13:05 04/12/19 13:05 Bariatric Checklist Checklist: Plan: Checklist: EGD: 1. Hiatal hernia: 2. H. Pylori: HgbA1c: Vitamin D: Smoking: Never smoker Primary care physician referral: dr godinez Psychiatry clearance: Cardiology clearance: Sleep study: Diet journal: VTE risk score: VTE risk level: Rehab needs at discharge:
[2019-04-12 14:40] LABS: HCT 45.9 % (34.0-46.0); HGB 15.2 gm/dL (11.4-16.0); MCH 27.7 pg (25.0-35.0); MCHC 33.1 g/dL (31.0-37.0); MCV 83.6 fL (80.0-100.0); Mean Platelet Volume 6.9; Platelet Count 281 k/uL (150-450); RBC 5.49 m/uL (3.80-5.40); RDW 13.1 % (11.5-15.5); WBC 9.7 k/uL (3.8-10.6)
[2019-04-12 14:51] LABS: INR 0.9 (<1.2); Partial Thromboplastin Time 22.6 sec (22.0-30.0); Prothrombin Time 9.5 sec (9.0-12.0)
[2019-04-12 19:21] LABS: % Iron Saturation 25.58 (12.00-45.00); African American GFR (CKD) 61.4 (60.0-200.0); Albumin 4.7 g/dL (3.80-4.90); Albumin/Globulin Ratio 2.04 (1.60-3.17); Anion Gap 9.2 mmol/L (4.00-12.00); BUN/Creat Ratio 23.64 Ratio (12.00-20.00); Calcium 9.7 mg/dL (8.7-10.3); Carbon Dioxide 26.8 mmol/L (21.6-31.8); Chol/HDL Ratio 4.11; Globulin 2.3 g/dL (1.6-3.3); LDL Cholesterol,Calculated 115.8 mg/dL (0.0-131.0); Phosphorus 4.2 mg/dL (2.4-5.1); Potassium 4.5 mmol/L (3.5-5.5); Total Bilirubin 0.3 mg/dL (0.3-1.2); VLDL Calculation 58.2 mg/dL (5.00-40.00)
[2019-04-12 19:28] LABS: Ferritin 65.3 ng/mL (10.0-291.0)
[2019-04-12 19:56] LABS: Folate, Serum 19.1 ng/mL
[2019-04-12 20:02] LABS: Hemoglobin A1C 5.6 % (4.0-6.0)
[2019-04-14 11:04] LABS: Zinc, Serum 58 ug/dL (60-130)
[2019-04-14 15:16] LABS: Vitamin A 70 ug/dL (38-106)
[2019-04-16 01:20] LABS: Selenium 120 mcg/L (63-160)
[2019-04-17 08:31] LABS: Vit B1(Thiamine) 70 ug/L (38-122)
== END | disposition home or self-care (01) ==
LOC: BARWHC3 12:39
PROVIDERS: ATTEND Surgery Plastic and Reconstructive Surgery
DX: Z48.815 Encounter for surgical aftercare following surgery on the digestive system (principal); E66.01 Morbid (severe) obesity due to excess calories; Z68.41 Body mass index [BMI] 40.0-44.9, adult; Z98.84 Bariatric surgery status; Z90.49 Acquired absence of other specified parts of digestive tract; E21.1 Secondary hyperparathyroidism, not elsewhere classified; E89.1 Postprocedural hypoinsulinemia; D50.9 Iron deficiency anemia, unspecified; K90.9 Intestinal malabsorption, unspecified; E55.9 Vitamin D deficiency, unspecified; K76.9 Liver disease, unspecified; N19 Unspecified kidney failure; K50.90 Crohn's disease, unspecified, without complications
CPT/HCPCS: 84255; 84134; 84425; 80061; 80053; 82607; 82728; 82525; 82746; 83540; 83550; 83735; 84100; 84443; 84590; 84630; 85027; 85610; 85730; 82306; 83970; 83036; G0463; 99211

== ENCOUNTER 2019-05-01 11:22 | Day surgery (SDC) | payer MEDICARE, BC ==
[2019-04-27 13:50] VITALS: BMI 41.8
--- NOTE | 2019-05-01 07:39 | P.GSHP ---
History of Present Illness H&P Date: 05/01/19 CHIEF COMPLAINT: GERD and colon screen HISTORY OF PRESENT ILLNESS: The patient is a 63-year-old female who presents with gastroesophageal reflux disease and need for colon screen. Upper and lower endoscopy were offered for further evaluation and management. PAST MEDICAL HISTORY: Please see list. PAST SURGICAL HISTORY: Please see list. MEDICATIONS: Please see list. ALLERGIES: Please see list. SOCIAL HISTORY: No illicit drug use FAMILY HISTORY: No reports of Crohn disease or ulcerative colitis. REVIEW OF ORGAN SYSTEMS: CONSTITUTIONAL: No reports of fevers or chills. GI: Denies any blood in stools or constipation. PHYSICAL EXAM: VITAL SIGNS: Stable GENERAL: Well-developed pleasant in no acute distress. HEENT: No scleral icterus. Extraocular movements grossly intact. Moist buccal mucosa. NECK: Supple without lymphadenopathy. CHEST: Unlabored respirations. Equal bilateral excursions. CARDIOVASCULAR: Regular rate and rhythm. Distal 2+ pulses. ABDOMEN: Soft, nondistended. MUSCULOSKELETAL: No clubbing, cyanosis, or edema. ASSESSMENT: 1. Gastroesophageal reflux disease 2. Colon screen. PLAN: 1. Recommend proceeding with an upper and lower endoscopy Past Medical History Past Medical History: Asthma, GERD/Reflux, Hypertension, Osteoarthritis (OA), Sleep Apnea/CPAP/BIPAP Additional Past Medical History / Comment(s): having increased reflux, PRECANCER CELLS RT BREAST, migraines, anemia History of Any Multi-Drug Resistant Organisms: None Reported Past Surgical History: Back Surgery, Bariatric Surgery, Breast Surgery, Cholecystectomy, Orthopedic Surgery Additional Past Surgical History / Comment(s): rt breast biopsy,. bilat CTR. bariatric sleeve 08/21/13,. rt knee surgery scope. egd 11/2013. 01/18/19: L 4-5-6 laminectomies Past Anesthesia/Blood Transfusion Reactions: No Reported Reaction Smoking Status: Never smoker - Past Family History Brother(s) Family Medical History: Cancer Additional Family Medical History / Comment(s): Brother of colon ca. Medications and Allergies Home Medications Medication Instructions Recorded Confirmed Type Topiramate 100 mg PO BID 07/31/13 04/27/19 History Atorvastatin [Lipitor] 20 mg PO DAILY 02/08/19 04/27/19 History Enalapril [Vasotec] 5 mg PO QAM 02/08/19 04/27/19 History Esomeprazole Magnesium [NexIUM] 40 mg PO DAILY 02/08/19 04/27/19 History Methocarbamol [Robaxin] 750 mg PO Q6HR PRN 02/08/19 04/27/19 History Naproxen Sodium [Aleve] 440 mg PO DAILY PRN 02/08/19 04/27/19 History Spironolactone 100 mg PO DAILY 02/08/19 04/27/19 History Triamterene/Hydrochlorothiazid 1 tab PO DAILY 02/08/19 04/27/19 History [Triamterene-Hctz 37.5-25 mg Tb] Venlafaxine HCl [Effexor XR] 300 mg PO QAM 02/08/19 04/27/19 History Multivitamin [Multivitamins Adult 1 tab PO DAILY 04/12/19 04/27/19 History Gummies] Allergies Allergy/AdvReac Type Severity Reaction Status Date / Time sulfamethoxazole AdvReac Nausea & Verified 04/27/19 13:44 [From Bactrim] Vomiting trimethoprim [From Bactrim] AdvReac Nausea & Verified 04/27/19 13:44 Vomiting dander Allergy sneezing Uncoded 04/27/19 13:44 and watery eyes hayfever Allergy sneezing Uncoded 04/27/19 13:44 and watery eyes pollen Allergy sneezing Uncoded 04/27/19 13:44 and watery eyes
[~2019-05-01 11:22] MED LIST changes: -LIDOCAINE 1% 20 ML VIAL (10MG/ML) FOR IV START INTRADERMA PRN
[2019-05-01 11:46] VITALS: TEMP 98.8
[2019-05-01] MEDS ORDERED: PROPOFOL 10 MG/ML 20 ML VIAL IV ONE (12:15)
[2019-05-01] MEDS ORDERED: LIDOCAINE 1% INJ 10MG/ML (20 ML MDV) ONE (12:15)
--- NOTE | 2019-05-01 12:37 | P.PCN ---
Date of Procedure: 05/01/19 Description of Procedure: PREOPERATIVE DIAGNOSIS: Gastroesophageal reflux disease. Morbid obesity. POSTOPERATIVE DIAGNOSIS: Morbid obesity. Gastritis. Gastroesophageal reflux disease. History of sleeve gastrectomy OPERATION: Esophagogastroduodenoscopy with biopsies along antrum. SURGEON: Laura Simental MD ANESTHESIA: MAC. INDICATIONS: The patient is a 63-year-old female who presents with a history of reflux disease. Benefits and risks of the procedure were described. Informed consent was obtained. DESCRIPTION: The patient was brought into the endoscopy suite and laid in the left lateral decubitus position. An Olympus gastroscope was passed along the posterior oropharynx down to the distal esophagus where the squamocolumnar junction was encountered at 40 cm from the incisors. The stomach was entered and no bile reflux was found. Additional findings are listed below. Biopsies with cold forceps were obtained of the antrum. The first through third portion of the duodenum was examined and unremarkable. Retroflexion of the scope was limited by her sleeve gastrectomy. The squamocolumnar junction demonstrated LA grade A erosive esophagitis. The stomach was desufflated. The patient tolerated the procedure well. FINDINGS: Squamocolumnar junction 40 cm from the incisors. Diaphragmatic hiatus at 40 cm. Hill grade unable to obtain due to sleeve gastrectomy LA grade A erosive esophagitis. No active duodenitis. Chronic gastritis RECOMMENDATIONS: Upper endoscopy as needed.
--- NOTE | 2019-05-01 12:51 | P.OP ---
Date of Procedure: 05/01/19 Description of Procedure: PREOPERATIVE DIAGNOSIS: Family history colon cancer, brother Colonoscopy screening. POSTOPERATIVE DIAGNOSIS: Family history colon cancer, brother Colonoscopy screening. OPERATION: Colonoscopy to the ileocecal valve and appendiceal orifice. SURGEON: Laura Simental MD. ANESTHESIA: MAC. INDICATIONS: The patient is a 63-year-old female who presents for colonoscopy screening. Last colonoscopy over 5 years ago. Benefits and risks were described and informed consent was obtained. DESCRIPTION OF PROCEDURE: The patient had undergone Suprep. She had been brought into the operating room and laid in the left lateral decubitus position. After adequate intravenous sedation, the rectum was examined with 2% lidocaine jelly. No external hemorrhoids were encountered. The rectal tone was within normal limits. No lesions were palpated in the rectal vault. An Olympus colonoscope was advanced until the ileocecal valve and appendiceal orifice were clearly viewed. The prep was excellent with clear visualization of the mucosal folds. The scope was removed with visualization of each mucosal fold. No scattered diverticulosis was encountered. No large colonic polyps were found. No evidence of focal colitis was found. Retroflexion of the scope demonstrated grade 1 internal hemorrhoids without active bleeding or inflammation. The colon was desufflated. The patient had tolerated the procedure well. Withdrawal time was over 6 minutes. FINDINGS: Aronchick preparation quality scale (1-5) Internal hemorrhoids, grade 1 No external prolapsed hemorrhoids. No arteriovenous malformations. No adenomatous polyps. No focal colitis. RECOMMENDATIONS: Lower endoscopy in 5 years, 2024 Plan - Discharge Summary New Discharge Prescriptions: Continue Topiramate 100 mg PO BID Spironolactone 100 mg PO DAILY Triamterene/Hydrochlorothiazid [Triamterene-Hctz 37.5-25 mg Tb] 1 tab PO DAILY Naproxen Sodium [Aleve] 440 mg PO DAILY PRN PRN Reason: Pain Methocarbamol [Robaxin] 750 mg PO Q6HR PRN PRN Reason: Spasms Atorvastatin [Lipitor] 20 mg PO DAILY Esomeprazole Magnesium [NexIUM] 40 mg PO DAILY Enalapril [Vasotec] 5 mg PO QAM Venlafaxine HCl [Effexor XR] 300 mg PO QAM Multivitamin [Multivitamins Adult Gummies] 1 tab PO DAILY Discharge Medication List Topiramate 100 mg PO BID 07/31/13 [History] Atorvastatin [Lipitor] 20 mg PO DAILY 02/08/19 [History] Enalapril [Vasotec] 5 mg PO QAM 02/08/19 [History] Esomeprazole Magnesium [NexIUM] 40 mg PO DAILY 02/08/19 [History] Methocarbamol [Robaxin] 750 mg PO Q6HR PRN 02/08/19 [History] Naproxen Sodium [Aleve] 440 mg PO DAILY PRN 02/08/19 [History] Spironolactone 100 mg PO DAILY 02/08/19 [History] Triamterene/Hydrochlorothiazid [Triamterene-Hctz 37.5-25 mg Tb] 1 tab PO DAILY 02/08/19 [History] Venlafaxine HCl [Effexor XR] 300 mg PO QAM 02/08/19 [History] Multivitamin [Multivitamins Adult Gummies] 1 tab PO DAILY 04/12/19 [History] [facility] [facility] [place] [place] [facility] [place] Patient Instructions/Handouts: *Surgery [facility] - (Anesthesia) Endoscopy Discharge Instructions Activity/Diet/Wound Care/Special Instructions: Repeat colonoscopy 5 years, 2024 Discharge Disposition: HOME SELF-CARE
[2019-05-01 13:17] VITALS: RESP 20
[2019-05-01 14:22] VITALS: BP 136/78; PULSE 78
== END 2019-05-01 13:17 | disposition home or self-care (01) ==
LOC: ORWHC2ENDO 11:22
PROVIDERS: ATTEND Surgery Plastic and Reconstructive Surgery
DX: K29.50 Unspecified chronic gastritis without bleeding (principal); K21.0 Gastro-esophageal reflux disease with esophagitis; E66.01 Morbid (severe) obesity due to excess calories; Z98.84 Bariatric surgery status; Z12.11 Encounter for screening for malignant neoplasm of colon; K64.0 First degree hemorrhoids; Z80.0 Family history of malignant neoplasm of digestive organs; J45.909 Unspecified asthma, uncomplicated; I10 Essential (primary) hypertension; M19.90 Unspecified osteoarthritis, unspecified site; G43.909 Migraine, unspecified, not intractable, without status migrainosus; K08.89 Other specified disorders of teeth and supporting structures; G47.33 Obstructive sleep apnea (adult) (pediatric); F32.9 Major depressive disorder, single episode, unspecified; Z68.41 Body mass index [BMI] 40.0-44.9, adult; Z88.2 Allergy status to sulfonamides; Z99.89 Dependence on other enabling machines and devices; Z86.2 Personal history of diseases of the blood and blood-forming organs and certain disorders involving the immune mechanism; Z98.890 Other specified postprocedural states; Z90.49 Acquired absence of other specified parts of digestive tract; Z79.899 Other long term (current) drug therapy; Z79.1 Long term (current) use of non-steroidal anti-inflammatories (NSAID); Z91.048 Other nonmedicinal substance allergy status
CPT/HCPCS: 88305; 43239; J2001; J2704; G0105; 45378

== ENCOUNTER → 2019-05-17 | Outpatient (CLI) | payer MEDICARE, BC ==
[2019-05-17 13:43] VITALS: BP 132/83; PULSE 80; RESP 16; TEMP 98.3; BMI 42.3
--- NOTE | 2019-05-17 16:55 | P.PN ---
Progress Note - Text Progress Note Date: 05/17/19 Patient not seen due to cancellation from emergency surgery
== END | disposition home or self-care (01) ==
LOC: BARWHC3 12:56
PROVIDERS: ATTEND Surgery Plastic and Reconstructive Surgery
DX: Z53.29 Procedure and treatment not carried out because of patient's decision for other reasons (principal)
CPT/HCPCS: 99211

== ENCOUNTER → 2020-02-26 | Outpatient (CLI) | payer MEDICARE, BC ==
[2020-02-26 07:41] LABS: HCT 44.3 % (34.0-46.0); MCH 27.8 pg (25.0-35.0); MCHC 33.8 g/dL (31.0-37.0); MCV 82.2 fL (80.0-100.0); Mean Platelet Volume 7.1; Platelet Count 241 k/uL (150-450); RBC 5.38 m/uL (3.80-5.40); RDW 13.6 % (11.5-15.5); WBC 7.9 k/uL (3.8-10.6)
[2020-02-26 07:49] LABS: Albumin 4.2 g/dL (3.5-5.0); Calcium 9.3 mg/dL (8.4-10.2); Potassium 4.1 mmol/L (3.5-5.1); Total Bilirubin 0.6 mg/dL (0.2-1.3); Total Protein 7.2 g/dL (6.3-8.2)
[2020-02-26 07:53] LABS: Appearance,Urine Cloudy (Clear); Bacteria,Urine Rare /hpf; Bilirubin,Urine Negative (Negative); Blood,Urine Negative (Negative); Color,Urine Yellow; Glucose,Urine (UA) 2+ (Negative); Ketones,Urine Negative (Negative); Leukocyte Esterase,Urine Moderate (Negative); Mucus,Urine Occasional /hpf; Nitrite,Urine Negative (Negative); PH, Urine 5.5 (5.0-8.0); Protein,Urine Trace (Negative); Specific Gravity,Urine 1.029 (1.001-1.035); Squamous Epithelial Cell,Urine 13 /hpf (0-4); Urobilinogen,Urine <2.0 mg/dL (<2.0); WBC,Urine 6 /hpf (0-5)
[2020-02-26 07:56] LABS: INR 0.9 (<1.2); Partial Thromboplastin Time 25.6 sec (22.0-30.0); Prothrombin Time 9.7 sec (9.0-12.0)
== END | disposition home or self-care (01) ==
LOC: LABPAT 07:08
PROVIDERS: ATTEND Orthopaedic Surgery
DX: Z01.818 Encounter for other preprocedural examination (principal); Z01.812 Encounter for preprocedural laboratory examination; Z51.81 Encounter for therapeutic drug level monitoring; Z79.01 Long term (current) use of anticoagulants
CPT/HCPCS: 36415; 80053; 81001; 85027; 85610; 85730; 86850; 86900; 86901; 87070

== ENCOUNTER 2020-03-04 05:32 | Day surgery (SDC) | payer MEDICARE, BC ==
[2020-03-01 09:09] VITALS: BMI 41.8
[~2020-03-04 05:32] MED LIST changes: +ACETAMINOPHEN TAB 500 MG TAB PO PRN; +GABAPENTIN 300 MG CAP PO PRN; -LACTATED RINGERS 1,000 ML IV SCH; +MELOXICAM 7.5 MG TAB PO PRN; +ROPIVACAINE 246.25 MG, EPINEPHrine 0.5 MG, KETOROLAC 30 MG, cloNIDine HCL/PF 80 MCG, WA... MISCELLANE PRN; +TRANEXAMIC ACID 1,000 MG in SODIUM CHLORIDE 0.9% 100 ML IVPB PRN
[2020-03-04] MEDS ORDERED: LIDOCAINE 1% (10MG/ML) FOR IV START INTRADERMA PRN (05:48)
[2020-03-04] MEDS ORDERED: ONDANSETRON 4 MG/2 ML VIAL IVP ONE (05:48)
[2020-03-04 06:31] LABS: Glucose,Whole Blood 105 mg/dL (75-99)
[2020-03-04] MEDS ORDERED: DEXAMETHASONE SOD PHOSPHATE 4 MG/ML 1 ML VIAL IVP ONE (06:35)
[2020-03-04] MEDS: LACTATED RINGERS 1,000 ML IV SCH (06:47)
[2020-03-04] MEDS ORDERED: MIDAZOLAM 2 MG/2 ML VIAL ONE (06:48)
[2020-03-04] MEDS ORDERED: TRANEXAMIC ACID 1,000 MG/10 ML VIAL ONE (06:48)
[2020-03-04] MEDS ORDERED: fentaNYL (PF) 50 MCG/ML 2 ML AMP ONE (06:48)
[2020-03-04] MEDS ORDERED: SODIUM CHLORIDE 0.9% 100 ML BAG ONE (06:48)
[2020-03-04] MEDS ORDERED: ceFAZolin 3,000 MG in SODIUM CHLORIDE 0.9% IRRIGATIO 3,000 ML IRRIGATION ONE (06:52)
[2020-03-04] MEDS: Ropivacaine 246 mg in RECK SYR 246 MG, Epinephrine 0.5 mg in RECK SYR 0.5 MG, Clonidine... MISCELLANE PRN ×2 (07:24→08:01)
--- NOTE | 2020-03-04 08:06 | P.OP ---
Date of Procedure: 03/04/20 Preoperative Diagnosis: Severe osteoarthritis right hip Postoperative Diagnosis: Severe osteoarthritis right hip Procedure(s) Performed: Right total hip arthroplasty with a direct anterior approach Implants: [employer] Polarstem standard size 5 [employer] R3, 3 hole hemispherical acetabular shell, 52 mm [employer] Reflection 6.5 mm cancellus screw, 20 mm 2 [employer] R3, XLPE 20 acetabular liner [employer]hew Oxinium femoral head 36 mm , -3 All components were press-fit. The articulation is Oxinium on polyethylene. Anesthesia: spinal Surgeon: Ag Felder Jeweler Apprentice #1: Cassy Barney Estimated Blood Loss (ml): 100 Pathology: other (Femoral head) Condition: stable Disposition: PACU Indications for Procedure: After failure of conservative treatment we discussed the surgical and nonsurg ical treatment options at length. Patient wishes to proceed with a total hip arthroplasty with a direct anterior approach. Complications specific to this procedure were discussed at length, including but not limited to infection, leg length discrepancy, dislocation, nerve injury, and fracture. Covid-19 was also discussed at length with the patient, and they are aware of the current policies and procedures. The patient was given the option of delaying surgery, but they elect to proceed knowing these risks. Patient is aware of all these complications and informed consent was obtained Operative Findings: The operative findings are consistent with severe osteoarthritis of the right hip Description of Procedure: Patient was seen and evaluated in the preoperative area and the consent was reviewed. The operative site was marked with a skin marker. The patient was then brought to the operating room and given preoperative antibiotics intravenously. 1 g of Tranexamic acid was also given intravenously. A spinal anesthetic was administered by the anesthesia department. The patient was then placed on the [place] table with the bony prominences well-padded. The hip area was then prepped with a ChloraPrep solution and draped in the usual sterile fashion. A universal timeout was then performed, which confirmed the patient's name, surgical site, ALLERGIES, and procedure being performed on the consent. Next the incision site was located at 1 cm distal and 1 cm lateral to the anterior superior iliac spine. The skin and subcutaneous tissues were sharply incised. Incision was carefully dissected down to the fascia overlying the tensor fascia shanon muscle. This fascia was then incised in line with the incision. Care was taken to stay laterally in order to avoid injuring the lateral femoral cutaneous nerve. Next, using blunt finger dissection, the tensor fascia shanon muscle was dissected off its investing fascia. The muscle was then carefully retracted laterally with a cobra retractor over the lateral neck of the femur. Next, the circumflex vessels were identified and cauterized using the AquaMantis device. The anterior hip capsule was then exposed. The capsule was then opened and an inverted T fashion. Cobra retractors were then placed intracapsularly. The retractors were maintained intracapsular throughout the procedure. The proximal femur was then visualized. A small amount of traction was placed on the leg. The femoral neck was then osteotomized appropriate level above the lesser trochanter. A small wedge of bone was then removed from the remaining femoral head. Next, using a corkscrew the femoral head was removed from the acetabulum. On gross visual inspection, the femoral head had complete loss of articular cartilage and multiple periarticular osteophytes. The femoral head was then measured. Attention was then turned to the acetabulum. The acetabulum was exposed and any remaining labrum was excised. Sequential reaming of the acetabulum was performed using fluoroscopic guidance until there was a good bed of bleeding cancellus bone. When the appropriate size was reached, a trial was then placed. The position and fit of the trial was checked with fluoroscopy. The trial was then removed. Then, using fluoroscopic guidance, the final implant was impacted at 20 of anteversion and 40 of abduction, and fully seated in the acetabulum. 2 screws were then placed in the acetabulum. Again fluoroscopy was used to check position of the screws. Next, the liner was then impacted, with a 20 elevated liner located in the anterior superior quadrant. Component locking was confirmed. Attention was then directed to the femur. With the aid of the [place] table, the femur was externally rotated to approximately 130, extended, and adducted under the opposite leg. A side hook was then placed under the proximal femur, and the side hook elevator was used to elevate the proximal femur while releasing the capsule. Retractors were then placed. A capsular release was performed, as well as a release of the conjoined tendon, which afforded excellent visualization of the proximal femur. Next, a box osteotome was used to lateralize the proximal femur. A merchandising specialist was then used to locate the femoral canal. Sequential broaching was then performed with appropriate size w hich afforded excellent fixation in the proximal femur. A trial was then placed with appropriate head and neck, and the hip was gently reduced with the aid of the [place] table. Fluoroscopy was then used to check position of the components, as well as to ensure equal leg lengths. The hip was then gently dislocated and the trials were then removed. Final implants were then impacted and the hip was again reduced. Final fluoroscopic x-rays confirmed that the components were in anatomic position, as well as equal leg lengths. The hip was also taken through range of motion, and found to be stable. The hip was then copiously irrigated with antibiotic solution with pulsatile lavage. The hip was then irrigated with Irrisept solution. The soft tissues were then injected with a ropivacaine solution, which consisted of 246.25 mg of ropivacaine, 0.5 mg of epinephrine, 30 mg of Toradol, 80 g of clonidine, and 48.45 mL of sterile water, for a total of 100 mL of fluid injected. A second dose of 1 g of Tranexamic acid was also given intravenously. Any blood collected by Cell Saver was then returned to the patient at this time. The fascia was then closed with 2-0 strata fix suture. The subcutaneous tissue was closed with 3-0 Vicryl. The subcuticular tissue was closed with 3-0 strata fix suture. The skin was then closed with Exofin skin glue. After the glue and dried, and Optifoam silver impregnated dressing was applied. The patient was then transferred to the recovery room in stable condition. The review assistant TALYA Boudreaux was required due to the complexity of surgery, and the need for skilled surgical rn for positioning, draping, exposure, retraction, and closure of the wound.
[2020-03-04] MEDS ORDERED: IV FLUID CONTINUATION 1,000 ML IV ONE ×2 (08:28)
[2020-03-04] MEDS ORDERED: ONDANSETRON 4 MG/2 ML VIAL IVP PRN (08:34)
[2020-03-04] MEDS ORDERED: hydrOXYzine pamoate 25 MG CAP PO PRN (08:34)
[2020-03-04] MEDS ORDERED: HYDROmorphone 0.5 MG/0.5 ML SYRINGE IVP PRN (08:34)
[2020-03-04] MEDS ORDERED: NALOXONE 0.4 MG/ML 1 ML VIAL IV PRN (08:34)
[2020-03-04] MEDS ORDERED: MAGNESIUM HYDROXIDE 2,400 MG/10 ML CUP PO PRN (08:34)
[2020-03-04] MEDS ORDERED: diazePAM 5 MG TAB PO PRN (08:34)
[2020-03-04] MEDS ORDERED: HYDROmorphone 0.2 MG/1 ML SYRINGE IVP PRN (08:34)
[2020-03-04] MEDS ORDERED: HYDROcodone/APAP 5-325MG 1 EACH TAB PO PRN (08:34)
[2020-03-04 08:36] LABS: Glucose,Whole Blood 131 mg/dL (75-99)
--- NOTE | 2020-03-04 09:13 | FL ---
Fluoroscopy History: RIGHT HIP ARTHROPLASTY 48 SEC FL, 2 IMAGES, RIGHT HIP ARTHROPLASTY
--- NOTE | 2020-03-04 09:14 | XR ---
EXAMINATION TYPE: XR Hip Limited RT DATE OF EXAM: 03/04/2020 CLINICAL HISTORY: Postoperative evaluation TECHNIQUE: Single portable view of the right hip was submitted. FINDINGS: Noted are changes of total hip arthroplasty with femoral and acetabular components appearin g well seated. Alignment is anatomic. Postsurgical soft tissue changes are evident. IMPRESSION: Satisfactory postoperative alignment
[2020-03-04] MEDS: SODIUM CHLORIDE 0.9% 1,000 ML IV SCH ×2 (09:25→15:40)
[2020-03-04] MEDS: HYDROmorphone 0.5 MG/0.5 ML SYRINGE IVP PRN ×6 (10:35→23:04)
[2020-03-04 16:48] VITALS: RESP 18
--- NOTE | 2020-03-04 17:17 | XR ---
Fluoroscopy INDICATION: Pain FINDINGS: Fluoroscopy time: 48 seconds. Images obtained: 2. IMPRESSIONS: 1. Documentation of fluoroscopy.
[2020-03-04] MEDS: HYDROcodone/APAP 5-325MG 1 EACH TAB PO PRN (19:28)
[2020-03-04] MEDS: ASPIRIN 325 MG TAB PO SCH (20:21)
[2020-03-04] MEDS ORDERED: SENNOSIDES-DOCUSATE SODIUM 1 EACH TAB PO SCH (21:00)
[2020-03-04] MEDS ORDERED: ATORVASTATIN 20 MG TAB PO SCH (21:45)
--- NOTE | 2020-03-04 22:05 | P.CONS ---
History of Present Illness - Reason for Consult Consult date: 03/04/20 Medical management Requesting physician: Ag Felder - Chief Complaint Right hip pain - History of Present Illness Consultation: This is a very pleasant 64-year-old patient of Dr. godinez from [place]. Chronic stable medical conditions include asthma, newly diagnosed diabetes, GERD, hypertension, osteoarthritis, depression, obstructive sleep apnea for which she uses a CPAP. Patient is undergoing right total hip arthroplasty. Postprocedure pain is well controlled. No nausea vomiting. No chest pain or shortness breath. Denies any cardiac history. Laying in bed comfortable. Review of systems: GEN.: None EYES: None HEENT: None NECK: None RESPIRATORY: None CARDIOVASCULAR: None GASTROINTESTINAL: None GENITOURINARY: Urinary incontinence MUSCULOSKELETAL: Joint pains LYMPHATICS: None HEMATOLOGICAL: None PSYCHIATRY: None NEUROLOGICAL: None Past medical history to include: Asthma, diabetes, GERD, hypertension, osteoarthritis, obstructive sleep apnea u ses CPAP, depression, urinary incontinence Social history: Does not smoke. No alcohol. Lives with her . Physical examination: VITAL SIGNS: 98.2, 77, 18, 1 25 x 79, 99% room air GENERAL: BMI 41.7, reclining in bed, comfortable. EYES: Pupils equal. Conjunctiva normal. HEENT: External appearance of nose and ears normal, oral cavity grossly normal. NECK: JVD not raised; masses not palpable. HEART: First and second heart sounds are normal; no edema. LUNGS: Respiratory rate normal; clear to auscultation. ABDOMEN: Soft, nontender, liver spleen not palpable, no masses palpable. PSYCH: Alert and oriented x3; mood and affect normal. MUSCULAR skeletal: Evidence of waist in the hands, dressing over the right hip NEUROLOGICAL: Cranial nerves grossly intact; no facial asymmetry, power and sensation grossly intact. LYMPHATICS: No lymph nodes palpable in the axilla and neck INVESTIGATIONS, reviewed in the clinical context: 02/26/2020: White count 7.9 hemoglobin 15 platelets 241 potassium 4.1 creatinine 0.84 [id number], 131 Assessment: -Right total hip arthroplasty -Intermittent asthma -Diabetes mellitus type 2 on oral hypoglycemic -GERD -Essential hypertension -Primary osteoarthritis -Obstructive sleep apnea uses CPAP machine -Depression not otherwise specified -Urinary incontinence -Morbid obesity BMI 41.7 Plan: Home medications resumed. Accu-Cheks to be followed. Patient is on aspirin for DVT prophylaxis per Dr. Felder. Care was discussed with the patient. Questions answered. Getting IV Ancef for perioperative infection prophylaxis. Patient is to follow-up with PCP upon discharge. Thank you Dr. Felder. Past Medical History Past Medical History: Asthma, Diabetes Mellitus, GERD/Reflux, Hypertension, Ost eoarthritis (OA), Sleep Apnea/CPAP/BIPAP Additional Past Medical History / Comment(s): having increased reflux, PRECANCER CELLS RT BREAST, migraines, C PAP MACHINE History of Any Multi-Drug Resistant Organisms: None Reported Past Surgical History: Back Surgery, Bariatric Surgery, Breast Surgery, Cholecystectomy, Heart Catheterization, Orthopedic Surgery Additional Past Surgical History / Comment(s): rt breast biopsy, LEFT KNEE ARTHROSWCOPIC , RIGHT KNEE ARTHROSCOPIC. bilat CTR. bariatric sleeve. egd 11/2013. 01/18/19: L4-5-6 laminectomies Past Anesthesia/Blood Transfusion Reactions: No Reported Reaction Smoking Status: Never smoker - Past Family History Brother(s) Family Medical History: Cancer Additional Family Medical History / Comment(s): Brother of colon ca. Sister(s) Family Medical History: Deep Vein Thrombosis (DVT) Medications and Allergies Home Medications Medication Instructions Recorded Confirmed Type Topiramate 100 mg PO BID 07/31/13 03/01/20 History Atorvastatin [Lipitor] 20 mg PO HS 02/08/19 03/01/20 History Enalapril [Vasotec] 5 mg PO QAM 02/08/19 03/01/20 History Esomeprazole Magnesium [NexIUM] 40 mg PO DAILY 02/08/19 03/01/20 History Naproxen Sodium [Aleve] 440 mg PO DAILY PRN 02/08/19 03/01/20 History Spironolactone 100 mg PO DAILY 02/08/19 03/01/20 History Venlafaxine HCl [Effexor XR] 300 mg PO QAM 02/08/19 03/01/20 History Multivitamin [Multivitamins Adult 1 tab PO DAILY 04/12/19 03/01/20 History Gummies] Calcium Citrate 1,200 mg PO DAILY 05/17/19 03/01/20 History Magnesium Oxide [Mag-Ox] 400 mg PO DAILY 05/17/19 03/01/20 History Canagliflozin [Invokana] 100 mg PO DAILY 03/01/20 03/01/20 History Pitavastatin Calcium [Livalo] 4 mg PO DAILY 03/01/20 03/01/20 History Allergies Allergy/AdvReac Type Severity Reaction Status Date / Time sulfamethoxazole AdvReac Nausea & Verified 03/04/20 05:54 [From Bactrim] Vomiting trimethoprim [From Bactrim] AdvReac Nausea & Verified 03/04/20 05:54 Vomiting dander Allergy sneezing Uncoded 03/04/20 05:54 and watery eyes hayfever Allergy sneezing Uncoded 03/04/20 05:54 and watery eyes pollen Allergy sneezing Uncoded 03/04/20 05:54 and watery eyes Physical Exam Vitals: Vital Signs Temp Pulse Pulse Resp BP BP Pulse Ox 03/04/20 18:59 98.0 F 84 18 124/76 97 03/04/20 16:48 98.2 F 77 18 125/79 99 03/04/20 16:00 80 16 144/69 98 03/04/20 15:00 85 18 147/68 96 03/04/20 14:00 82 16 139/72 96 03/04/20 13:00 79 18 135/59 97 03/04/20 12:30 89 16 127/73 96 03/04/20 12:00 94 16 117/62 95 03/04/20 11:30 82 18 130/64 96 03/04/20 11:00 76 18 131/80 96 03/04/20 10:30 78 16 121/66 95 03/04/20 10:00 77 18 120/65 96 03/04/20 09:30 78 16 107/59 96 03/04/20 09:15 72 16 102/53 97 03/04/20 09:00 72 16 101/51 97 03/04/20 08:45 71 16 98/53 97 03/04/20 08:28 96.8 F L 73 16 105/61 96 03/04/20 05:53 96.9 F L 84 16 154/87 98 Intake and Output 03/04/20 03/04/20 03/04/20 06:59 14:59 22:59 Intake Total 2865 172 1332 Output Total 100 Balance 5295 962 7353 Intake: IV 1001 250 850 Oral 300 Output: Estimated Blood Loss 100 Other: Voiding Method Toilet # Voids 1 Weight 119.1 kg 119.1 kg Results Labs: Abnormal Lab Results - Last 24 Hours (Table) 03/04/20 03/04/20 Range/Units 06:29 08:33 POC Glucose (mg/dL) 105 H 131 H (75-99) mg/dL
[2020-03-04] MEDS: TOPIRAMATE 100 MG TAB PO SCH (23:03)
[2020-03-05] MEDS: SODIUM CHLORIDE 0.9% 1,000 ML IV SCH ×2 (01:48→13:59)
[2020-03-05] MEDS: LACTATED RINGERS 1,000 ML IV SCH (05:18)
[2020-03-05] MEDS: HYDROmorphone 0.5 MG/0.5 ML SYRINGE IVP PRN (06:10)
[2020-03-05] MEDS ORDERED: PANTOPRAZOLE 40 MG TABLET PO SCH (07:30)
[2020-03-05 08:17] VITALS: BP 109/71; PULSE 86; TEMP 99.6
[2020-03-05 08:19] LABS: Basophils % (A) 0 %; Eosinophils # (A) 0.1 k/uL (0-0.7); Eosinophils % (A) 1 %; HCT 37.8 % (34.0-46.0); HGB 12.5 gm/dL (11.4-16.0); Lymphocytes # (A) 2.3 k/uL (1.0-4.8); Lymphocytes % (A) 22 %; MCH 27.7 pg (25.0-35.0); MCHC 33.2 g/dL (31.0-37.0); MCV 83.4 fL (80.0-100.0); Monocytes # (A) 0.8 k/uL (0-1.0); Monocytes % (A) 7 %; Neutrophils # (A) 7.1 k/uL (1.3-7.7); Neutrophils % (A) 68 %; Platelet Count 223 k/uL (150-450); RBC 4.53 m/uL (3.80-5.40); RDW 13.4 % (11.5-15.5); WBC 10.4 k/uL (3.8-10.6)
[2020-03-05] MEDS ORDERED: VENLAFAXINE HCL ER 150 MG CAP PO SCH (09:00)
[2020-03-05] MEDS ORDERED: lisinopriL 10 MG TAB PO SCH (09:00)
[2020-03-05] MEDS ORDERED: MULTIVITAMINS, THERA 1 EACH TAB PO SCH (09:00)
[2020-03-05] MEDS ORDERED: SPIRONOLACTONE 25 MG TAB PO SCH (09:00)
[2020-03-05] MEDS ORDERED: MELOXICAM 7.5 MG TAB PO SCH (09:00)
[2020-03-05] MEDS ORDERED: MAGNESIUM OXIDE 400 MG TAB PO SCH (09:00)
[2020-03-05] MEDS: ASPIRIN 325 MG TAB PO SCH (09:02)
[2020-03-05] MEDS: TOPIRAMATE 100 MG TAB PO SCH (09:02)
[2020-03-05] MEDS: HYDROcodone/APAP 5-325MG 1 EACH TAB PO PRN (09:11)
--- NOTE | 2020-03-05 09:25 | P.DS ---
Providers Expected date of discharge: 03/05/20 Attending physician: Ag Felder Consults: 03/04/20 08:34 Consult Physician Routine Consulting Provider: Brady Mitchell Consult Reason/Comments: medical management Do you want consulting provider notified?: Yes Primary care physician: Carter Sarmiento MD - Discharge Diagnosis(es) (1) S/P total hip arthroplasty Current Visit: Yes Status: Acute (2) Osteoarthritis of right hip Current Visit: Yes Status: Acute Hospital Course: This is a 64-year-old female with known history of degenerative arthritis of the right hip. The patient presented for evaluation as an outpatient. After discussion and consideration patient elects to proceed with total hip arthroplasty. The patient is seen preoperatively by Dr. Felder and medically cleared for surgery by their primary care physician. Patient is admitted to [facility] on 03/04/2020 for total hip arthroplasty. The procedure is performed without complication or sequelae. The patient is doing well postoperatively. Labs and vital signs are stable on day of discharge. On day of discharge patient's hip incision is healing well. There is minimal erythema. There is no drainage noted at this time. There is minimal soft tissue swelling to the hip and thigh. Patient has full foot and ankle motion without difficulty or pain. Calf is soft and nontender to palpation. Neurovascular status to the right lower extremity is intact. Patient is d ischarged home in good condition. Opioid start talking form is reviewed and signed. Please see med rec for accurate list of home medications. Plan - Discharge Summary Discharge Rx Participant: No New Discharge Prescriptions: New Aspirin 325 mg PO BID #60 tab HYDROcodone/APAP 5-325MG [[place] 5-325] 1 - 2 tab PO Q6HR PRN #48 tab PRN Reason: Pain Sennosides [Senokot] 2 tab PO DAILY PRN #60 tablet PRN Reason: Constipation No Action Topiramate 100 mg PO BID Spironolactone 100 mg PO DAILY Naproxen Sodium [Aleve] 440 mg PO DAILY PRN PRN Reason: Pain Atorvastatin [Lipitor] 20 mg PO HS Esomeprazole Magnesium [NexIUM] 40 mg PO DAILY Enalapril [Vasotec] 5 mg PO QAM Venlafaxine HCl [Effexor XR] 300 mg PO QAM Multivitamin [Multivitamins Adult Gummies] 1 tab PO DAILY Magnesium Oxide [Mag-Ox] 400 mg PO DAILY Calcium Citrate 1,200 mg PO DAILY Canagliflozin [Invokana] 100 mg PO DAILY Pitavastatin Calcium [Livalo] 4 mg PO DAILY Discharge Medication List Topiramate 100 mg PO BID 07/31/13 [History] Atorvastatin [Lipitor] 20 mg PO HS 02/08/19 [History] Enalapril [Vasotec] 5 mg PO QAM 02/08/19 [History] Esomeprazole Magnesium [NexIUM] 40 mg PO DAILY 02/08/19 [History] Naproxen Sodium [Aleve] 440 mg PO DAILY PRN 02/08/19 [History] Spironolactone 100 mg PO DAILY 02/08/19 [History] Venlafaxine HCl [Effexor XR] 300 mg PO QAM 02/08/19 [History] Multivitamin [Multivitamins Adult Gummies] 1 tab PO DAILY 04/12/19 [History] Calcium Citrate 1,200 mg PO DAILY 05/17/19 [History] Magnesium Oxide [Mag-Ox] 400 mg PO DAILY 05/17/19 [History] Canagliflozin [Invokana] 100 mg PO DAILY 03/01/20 [History] Pitavastatin Calcium [Livalo] 4 mg PO DAILY 03/01/20 [History] Aspirin 325 mg PO BID #60 tab 03/05/20 [Rx] HYDROcodone/APAP 5-325MG [[place] 5-325] 1 - 2 tab PO Q6HR PRN #48 tab 03/05/20 [Rx] Sennosides [Senokot] 2 tab PO DAILY PRN #60 tablet 03/05/20 [Rx] Follow up Appointment(s)/Referral(s): Carter Sarmiento MD [Primary Care Provider] - 03/12/20 1:00 pm Ag Felder DO [Doctor of Osteopathic Medicine] - 03/18/20 9:30 am Activity/Diet/Wound Care/Special Instructions: Weightbearing as tolerated with walker. Leave dressing intact. Dressing may be removed by home care nurse or by patient in 10 days. May shower with dressing on. Please take aspirin 325mg twice daily for 30 days to prevent blood clots. Recommend use of compression stockings daily until follow up to help prevent swelling and blood clots. May remove at night before sleeping. Please follow-up with [facility] in 2 weeks and call with any questions or concerns, . Discharge Disposition: HOME WITH HOME HEALTH SERVICES
--- NOTE | 2020-03-05 22:29 | P.PN ---
Progress Note - Text Progress Note Date: 03/05/20 - Chief Complaint Right hip pain - History of Present Illness Consultation: This is a very pleasant 64-year-old patient of Dr. godinez from [place]. Chronic stable medical conditions include asthma, newly diagnosed diabetes, GERD, hypertension, osteoarthritis, depression, obstructive sleep apnea for which she uses a CPAP. Underwent right total hip arthroplasty. Today-sitting up. Some pain in the operative site. No nausea vomiting. Did work with therapy. No chest pain or short of breath. Otherwise feeling well. Review of systems: Was done for constitutional, cardiovascular, GI, pulmonary. relevant finding as above Current medications reviewed in today's electronic records Physical examination: VITAL SIGNS: 99.6, 86, 18, 109/71, 97% room air GENERAL: Sitting up in a chair,, comfortable. EYES: Pupils equal. Conjunctiva normal. NECK: JVD not raised; masses not palpable. HEART: First and second heart sounds are normal; no edema. LUNGS: Respiratory rate normal; clear to auscultation. ABDOMEN: Soft, nontender, liver spleen not palpable, no masses palpable. PSYCH: Alert and oriented x3; mood and affect normal. MUSCULAR skeletal: Evidence of waist in the hands, dressing over the right hip INVESTIGATIONS, reviewed in the clinical context: White count 10.4 hemoglobin 12.5 02/26/2020: White count 7.9 hemoglobin 15 platelets 241 potassium 4.1 creatinine 0.84 [id number], 131 Assessment: -Right total hip arthroplasty -Intermittent asthma -Diabetes mellitus type 2 on oral hypoglycemic -GERD -Essential hypertension -Primary osteoarthritis -Obstructive sleep apnea uses CPAP machine -Depression not otherwise specified -Urinary incontinence -Morbid obesity BMI 41.7 Plan: Patient told to check her blood pressure every morning and resume her blood pressure medication with systolic blood pressures above 130. Other medications to continue. Follow-up with PCP. Thank you Dr. Felder.
== END 2020-03-05 15:35 | disposition home health service (06) ==
LOC: OR 05:32 → 4SSUR 16:07 → OR 03-05 15:35
PROVIDERS: ATTEND Orthopaedic Surgery
DX: M16.11 Unilateral primary osteoarthritis, right hip (principal); M25.751 Osteophyte, right hip; M76.01 Gluteal tendinitis, right hip; I10 Essential (primary) hypertension; J45.20 Mild intermittent asthma, uncomplicated; G43.909 Migraine, unspecified, not intractable, without status migrainosus; K21.9 Gastro-esophageal reflux disease without esophagitis; R32 Unspecified urinary incontinence; F41.3 Other mixed anxiety disorders; E11.9 Type 2 diabetes mellitus without complications; E55.9 Vitamin D deficiency, unspecified; F32.9 Major depressive disorder, single episode, unspecified; J30.89 Other allergic rhinitis; M79.7 Fibromyalgia; G47.33 Obstructive sleep apnea (adult) (pediatric); E66.01 Morbid (severe) obesity due to excess calories; Z68.41 Body mass index [BMI] 40.0-44.9, adult; Z86.010 Personal history of colon polyps; Z97.3 Presence of spectacles and contact lenses; Z83.3 Family history of diabetes mellitus; Z82.49 Family history of ischemic heart disease and other diseases of the circulatory system; Z83.49 Family history of other endocrine, nutritional and metabolic diseases; Z79.1 Long term (current) use of non-steroidal anti-inflammatories (NSAID); Z79.84 Long term (current) use of oral hypoglycemic drugs; Z79.891 Long term (current) use of opiate analgesic; Z79.899 Other long term (current) drug therapy; Z79.51 Long term (current) use of inhaled steroids; Z88.1 Allergy status to other antibiotic agents; Z88.2 Allergy status to sulfonamides; Z88.8 Allergy status to other drugs, medicaments and biological substances; Z98.84 Bariatric surgery status; Z98.890 Other specified postprocedural states; Z90.49 Acquired absence of other specified parts of digestive tract
CPT/HCPCS: 27130; 97110; 97161; 97535; 97165; 85025; 88300; 73501; C1776; J2250; J1100; J0690 ×2; J2405; J3010; J1170 ×2; 86850; 86900; 86901

== ENCOUNTER → 2023-06-09 | Outpatient (CLI) | payer MEDICARE, BC ==
[2023-06-09 13:59] VITALS: BP 135/77; PULSE 79; RESP 16; TEMP 98.2; BMI 38.6
--- NOTE | 2023-06-09 14:46 | P.HPBAR ---
Bariatric H&P - History & Physicial H&P Date: 06/09/23 History & Physicial: Visit/CC: F/U Patient initial contact: Initial weight: 134.445 kg Initial weight in pounds: 296.40 Height: 5 ft 6.5 in Initial BMI: 47.1 Last weight: Current weight: 110.223 kg Current weight in pounds: 243.00 Current BMI: 38.6 [place] body weight (based on NIH guidelines): 60.101 kg Excess body weight loss: 32.5% The patient is a 67 year-old F who presents for Bariatric Assessment. Highest 302 pounds, Lowest weight 230 pounds. She continues to lose weight. She has 30 pounds of pannus. She has grade 3 pannus. Needs labs. Has panniculitis. Pictures later, 100 pounds weight loss. Nystatin powder. Production Troubleshooter. Past Medical History Past Medical History: Asthma, GERD/Reflux, Hypertension, Osteoarthritis (OA), Sleep Apnea/CPAP/BIPAP Additional Past Medical History / Comment(s): having increased reflux, PRECANCER CELLS RT BREAST, migraines, anemia History of Any Multi-Drug Resistant Organisms: None Reported Past Surgical History: Back Surgery, Bariatric Surgery, Breast Surgery, Cholecystectomy, Orthopedic Surgery Additional Past Surgical History / Comment(s): rt breast biopsy,. bilat CTR. bariatric sleeve 08/21/13,. rt knee surgery scope. egd 11/2013. 01/18/19: L4-5-6 laminectomies Past Anesthesia/Blood Transfusion Reactions: No Reported Reaction Past Psychological History: Depression Smoking Status: Never smoker Past Alcohol Use History: None Reported Past Drug Use History: None Reported - Past Family History Brother(s) Family Medical History: Cancer Additional Family Medical History / Comment(s): Brother of colon ca. Sister(s) Family Medical History: Deep Vein Thrombosis (DVT) Surgical - Exam Vital Signs Temp Pulse Resp BP 98.2 F 79 16 135/77 06/09/23 13:32 06/09/23 13:32 06/09/23 13:32 06/09/23 13:32 Bariatric Checklist Checklist: Plan: Checklist: EGD: 1. Hiatal hernia: 2. H. Pylori: HgbA1c: Vitamin D: Smoking: Never smoker Primary care physician referral: dr godinez Psychiatry clearance: Cardiology clearance: Sleep study: Diet journal: VTE risk score: VTE risk level: Rehab needs at discharge:
[2023-06-09 16:13] LABS: INR 0.9 (<1.2); Partial Thromboplastin Time 25.7 sec (22.0-30.0); Prothrombin Time 10.4 sec (10.0-12.5)
[2023-06-09 19:44] LABS: HCT 49.4 % (37.2-46.3); HGB 16.5 g/dL (12.0-15.0); MCH 28.2 pg (27.0-32.0); MCHC 33.4 g/dL (32.0-37.0); MCV 84.4 FL (80.0-97.0); Mean Platelet Volume 10.5 FL (9.5-12.2); NRBC Per 100 WBC 0 X 10*3/uL (0.00-0.01); Platelet Count 322 X 10*3/uL (140-440); RBC 5.85 X 10*6/uL (4.10-5.20); RDW 12.6 % (11.5-14.5); WBC 10.96 X 10*3/uL (4.50-10.00)
[2023-06-09 21:34] LABS: % Iron Saturation 13.33 (12.00-45.00); ALT 26 U/L (8-44); AST 25 U/L (13-35); Albumin 4.7 g/dL (3.8-4.9); Albumin/Globulin Ratio 1.57 Ratio (1.60-3.17); Alkaline Phosphatase 79 U/L (41-126); Blood Urea Nitrogen 20.4 mg/dL (9.0-27.0); Calcium 9.9 mg/dL (8.7-10.3); Carbon Dioxide 23.8 mmol/L (21.6-31.8); Chloride 106 mmol/L (96-109); Chol/HDL Ratio 3.38 Ratio; Glucose 93 mg/dL (70-110); Iron 56 UG/DL (50-170); LDL Cholesterol,Calculated 61.8 mg/dL (0.0-131.0); Magnesium 2.3 mg/dL (1.5-2.4); Phosphorus 3.5 mg/dL (2.4-5.1); Potassium 3.9 mmol/L (3.5-5.5); Sodium 143 mmol/L (135-145); Total Bilirubin 0.2 mg/dL (0.3-1.2); Total Iron Binding Capacity 420 UG/DL (228-460); Total Protein 7.7 g/dL (6.2-8.2)
[2023-06-10 13:39] LABS: Zinc, Serum 82 ug/dL (60-130)
[2023-06-11 06:31] LABS: Vitamin A 61 ug/dL (38-106)
[2023-06-11 12:27] LABS: Vit B1(Thiamine) 109 ug/L (38-122)
[2023-06-16 07:37] LABS: Selenium 137 mcg/L (63-160)
== END ==
LOC: BARWHC3 12:51
PROVIDERS: ATTEND Surgery Plastic and Reconstructive Surgery
DX: E66.01 Morbid (severe) obesity due to excess calories (principal); E89.1 Postprocedural hypoinsulinemia; D50.8 Other iron deficiency anemias; K90.89 Other intestinal malabsorption; E55.9 Vitamin D deficiency, unspecified; K74.1 Hepatic sclerosis; N19 Unspecified kidney failure; T56.894A Toxic effect of other metals, undetermined, initial encounter; K50.90 Crohn's disease, unspecified, without complications; Z68.38 Body mass index [BMI] 38.0-38.9, adult; Z88.2 Allergy status to sulfonamides; Z88.1 Allergy status to other antibiotic agents; Z91.09 Other allergy status, other than to drugs and biological substances; Z91.048 Other nonmedicinal substance allergy status
CPT/HCPCS: 84255; 84134; 84425; 80061; 80053; 82607; 82728; 82525; 82746; 83540; 83550; 83735; 84100; 84443; 84590; 84630; 85027; 85610; 85730; 82306; 83970; 83036; 36415; G0463; 99211

== ENCOUNTER 2023-06-23 07:25 | Day surgery (SDC) | payer MEDICARE, BC ==
[~2023-06-23 07:25] MED LIST changes: -ACETAMINOPHEN TAB 500 MG TAB PO PRN; -GABAPENTIN 300 MG CAP PO PRN; +LIDOCAINE 1% (10MG/ML) FOR IV START INTRADERMA PRN; -MELOXICAM 7.5 MG TAB PO PRN; -ROPIVACAINE 246.25 MG, EPINEPHrine 0.5 MG, KETOROLAC 30 MG, cloNIDine HCL/PF 80 MCG, WA... MISCELLANE PRN; -TRANEXAMIC ACID 1,000 MG in SODIUM CHLORIDE 0.9% 100 ML IVPB PRN
[2023-06-23 08:11] LABS: Glucose,Whole Blood 87 mg/dL (70-110)
[2023-06-23] MEDS: LACTATED RINGERS 1,000 ML IV SCH (08:13)
--- NOTE | 2023-06-23 08:27 | P.GSHP ---
History of Present Illness H&P Date: 06/23/23 CHIEF COMPLAINT: GERD and colon screen HISTORY OF PRESENT ILLNESS: The patient is a 67-year-old female who presents with gastroesophageal reflux disease and need for colon screen. Upper and lower endoscopy were offered for further evaluation and management. PAST MEDICAL HISTORY: Please see list. PAST SURGICAL HISTORY: Please see list. MEDICATIONS: Please see list. ALLERGIES: Please see list. SOCIAL HISTORY: No illicit drug use FAMILY HISTORY: No reports of Crohn disease or ulcerative colitis. REVIEW OF ORGAN SYSTEMS: CONSTITUTIONAL: No reports of fevers or chills. GI: Denies any blood in stools or constipation. PHYSICAL EXAM: VITAL SIGNS: Stable GENERAL: Well-developed pleasant in no acute distress. HEENT: No scleral icterus. Extraocular movements grossly intact. Moist buccal mucosa. NECK: Supple without lymphadenopathy. CHEST: Unlabored respirations. Equal bilateral excursions. CARDIOVASCULAR: Regular rate and rhythm. Distal 2+ pulses. ABDOMEN: Soft, nondistended. MUSCULOSKELETAL: No clubbing, cyanosis, or edema. ASSESSMENT: 1. Gastroesophageal reflux disease 2. Colon screen. PLAN: 1. Recommend proceeding with an upper and lower endoscopy Past Medical History Past Medical History: Asthma, Diabetes Mellitus, GERD/Reflux, Hyperlipidemia, Hypertension, Osteoarthritis (OA), Sleep Apnea/CPAP/BIPAP Additional Past Medical History / Comment(s): , PRECANCER CELLS RT BREAST, migraines, anemia, not using cpap recently, History of Any Multi-Drug Resistant Organisms: None Reported Past Surgical History: Back Surgery, Bariatric Surgery, Breast Surgery, Cholecystectomy, Joint Replacement, Orthopedic Surgery Additional Past Surgical History / Comment(s): rt breast biopsy, rt hip replacement. bilat [facility]. bariatric sleeve 08/21/13,. rt knee surgery scope. egd 11/2013. 01/18/19: L4-5-6 laminectomies Past Anesthesia/Blood Transfusion Reactions: No Reported Reaction Smoking Status: Never smoker - Past Family History Brother(s) Family Medical History: Cancer Additional Family Medical History / Comment(s): Brother of colon ca. Sister(s) Family Medical History: Deep Vein Thrombosis (DVT) Medications and Allergies Home Medications Medication Instructions Recorded Confirmed Type Atorvastatin [Lipitor] 20 mg PO HS 02/08/19 06/23/23 History Enalapril [Vasotec] 5 mg PO QAM 02/08/19 06/23/23 History Esomeprazole Magnesium [NexIUM] 40 mg PO DAILY 02/08/19 06/23/23 History Spironolactone 100 mg PO DAILY 02/08/19 06/23/23 History Venlafaxine HCl [Effexor XR] 300 mg PO QAM 02/08/19 06/23/23 History Multivitamin [Multivitamins Adult 1 tab PO DAILY 04/12/19 06/23/23 History Gummies] Calcium Citrate 1,200 mg PO DAILY 05/17/19 06/23/23 History Magnesium Oxide [Mag-Ox] 400 mg PO DAILY 05/17/19 06/23/23 History Canagliflozin [Invokana] 100 mg PO DAILY 03/01/20 06/23/23 History Pitavastatin Calcium [Livalo] 4 mg PO DAILY 03/01/20 06/23/23 History Sennosides [Senokot] 2 tab PO DAILY PRN #60 tablet 03/05/20 06/23/23 Rx Nystatin 100,000 Unit/gm Powd 1 applic TOPICAL BID #60 gm 06/09/23 06/23/23 Rx [Mycostatin Powder] Ozempic (Unk) 1 dose INHALATION SA 06/22/23 06/23/23 History Allergies Allergy/AdvReac Type Severity Reaction Status Date / Time sulfamethoxazole AdvReac Nausea & Verified 06/23/23 07:49 [From Bactrim] Vomiting trimethoprim [From Bactrim] AdvReac Nausea & Verified 06/23/23 07:49 Vomiting dander Allergy sneezing Uncoded 06/23/23 07:49 and watery eyes hayfever Allergy sneezing Uncoded 06/23/23 07:49 and watery eyes pollen Allergy sneezing Uncoded 06/23/23 07:49 and watery eyes Surgical - Exam Vital Signs Temp Pulse Resp BP Pulse Ox 96.9 F L 78 20 163/68 99 06/23/23 07:59 06/23/23 07:59 06/23/23 07:59 06/23/23 07:59 06/23/23 07:59
[2023-06-23] MEDS ORDERED: PROPOFOL 10 MG/ML 20 ML VIAL IV ONE (08:28)
[2023-06-23] MEDS ORDERED: LIDOCAINE 1% INJ 10MG/ML (20 ML MDV) ONE (08:28)
[2023-06-23 08:34] VITALS: TEMP 96.9
--- NOTE | 2023-06-23 09:07 | P.PCN ---
Date of Procedure: 06/23/23 Description of Procedure: PREOPERATIVE DIAGNOSIS: Dysphagia Gastroesophageal reflux disease. Morbid obesity. POSTOPERATIVE DIAGNOSIS: Gastroesophageal reflux disease. Morbid obesity. Gastritis. Diaphragmatic hiatal hernia OPERATION: Esophagogastroduodenoscopy with biopsies along antrum and duodenum and esophagus SURGEON: Laura Simental MD ANESTHESIA: MAC. INDICATIONS: The patient is a 67-year-old female who presents with dysphagia and reflux disease. Benefits and risks of the procedure were described. Informed consent was obtained. DESCRIPTION: The patient was brought into the endoscopy suite and laid in the left lateral decubitus position. An Olympus gastroscope was passed along the posterior oropharynx down to the distal esophagus where the squamocolumnar junction was encountered at 40 cm from the incisors. Presence of sleeve gastrectomy identified the stomach was entered and no bile reflux was found. Additional findings are listed below. Biopsies with cold forceps were obtained of the antrum. The first through third portion of the duodenum was examined. Retroflexion of the scope was. The squamocolumnar junction demonstrated LA grade B erosive esophagitis. The stomach was desufflated. The patient tolerated the procedure well. FINDINGS: Squamocolumnar junction 40 cm from the incisors. Diaphragmatic hiatus at 41 cm. Hiatal hernia, 1 cm Sleeve gastrectomy with dilated pouch. LA grade B erosive esophagitis. Biopsies obtained Biopsies obtained of the duodenum. Chronic gastritis with biopsies obtained. RECOMMENDATIONS: Recommend esophagram due to dysphagia
[2023-06-23 09:22] LABS: Glucose,Whole Blood 86 mg/dL (70-110)
--- NOTE | 2023-06-23 09:27 | P.PCN ---
Date of Procedure: 06/23/23 Description of Procedure: PREOPERATIVE DIAGNOSIS: Personal history colon polyps Family history colon cancer Colonoscopy screening. POSTOPERATIVE DIAGNOSIS: Colonoscopy screening. OPERATION: Colonoscopy to the cecum, ileocecal valve and appendiceal orifice. SURGEON: Laura Simental MD. ANESTHESIA: MAC. INDICATIONS: The patient is a 67-year-old female who presents for colonoscopy screening. Last colonoscopy of 5 years ago. Benefits and risks were described and informed consent was obtained. DESCRIPTION OF PROCEDURE: The patient had undergone GoLytely prep. The patient had been brought into the operating room and laid in the left lateral decubitus position. After adequate intravenous sedation, the rectum was examined with 2% lidocaine jelly. No external hemorrhoids were encountered. The rectal tone was within normal limits. No lesions were palpated in the rectal vault. An Olympus colonoscope was advanced until the cecum, ileocecal valve and appendiceal orifice were clearly viewed. The prep was good. No scattered diverticulosis was encountered. No colonic polyps were found. No evidence of focal colitis was found. Retroflexion of the scope demonstrated grade 2 internal hemorrhoids without active bleeding or inflammation. The colon was desufflated. The patient had tolerated the procedure well. Withdrawal time was over 6 minutes. FINDINGS: Aronchick preparation quality scale 1+(1-5) Internal hemorrhoids, grade 2 No external prolapsed hemorrhoids. No arteriovenous malformations. No adenomatous polyps. No focal colitis. Highly redundant sigmoid colon RECOMMENDATIONS: Lower endoscopy in 5 years, 2028 Plan - Discharge Summary Discharge Rx Participant: No New Discharge Prescriptions: Continue Spironolactone 100 mg PO DAILY Atorvastatin [Lipitor] 20 mg PO HS Esomeprazole Magnesium [NexIUM] 40 mg PO DAILY Enalapril [Vasotec] 5 mg PO QAM Venlafaxine HCl [Effexor XR] 300 mg PO QAM Multivitamin [Multivitamins Adult Gummies] 1 tab PO DAILY Magnesium Oxide [Mag-Ox] 400 mg PO DAILY Calcium Citrate 1,200 mg PO DAILY Canagliflozin [Invokana] 100 mg PO DAILY Pitavastatin Calcium [Livalo] 4 mg PO DAILY Sennosides [Senokot] 2 tab PO DAILY PRN #60 tablet PRN Reason: Constipation Nystatin 100,000 Unit/gm Powd [Mycostatin Powder] 1 applic TOPICAL BID #60 gm Ozempic (Unk) 1 dose INHALATION SA Discharge Medication List Atorvastatin [Lipitor] 20 mg PO HS 02/08/19 [History] Enalapril [Vasotec] 5 mg PO QAM 02/08/19 [History] Esomeprazole Magnesium [NexIUM] 40 mg PO DAILY 02/08/19 [History] Spironolactone 100 mg PO DAILY 02/08/19 [History] Venlafaxine HCl [Effexor XR] 300 mg PO QAM 02/08/19 [History] Multivitamin [Multivitamins Adult Gummies] 1 tab PO DAILY 04/12/19 [History] Calcium Citrate 1,200 mg PO DAILY 05/17/19 [History] Magnesium Oxide [Mag-Ox] 400 mg PO DAILY 05/17/19 [History] Canagliflozin [Invokana] 100 mg PO DAILY 03/01/20 [History] Pitavastatin Calcium [Livalo] 4 mg PO DAILY 03/01/20 [History] Sennosides [Senokot] 2 tab PO DAILY PRN #60 tablet 03/05/20 [Rx] Nystatin 100,000 Unit/gm Powd [Mycostatin Powder] 1 applic TOPICAL BID #60 gm 06/09/23 [Rx] Ozempic (Unk) 1 dose INHALATION SA 06/22/23 [History] [facility]Ref[facility] [place] [facility] [place] [facility] Patient Instructions/Handouts: Hiatal Hernia (DC) Activity/Diet/Wound Care/Special Instructions: Repeat colonoscopy 5 years, 2028 Discharge Disposition: HOME SELF-CARE
[2023-06-23 09:56] VITALS: BP 116/76; PULSE 70; RESP 16
== END 2023-06-23 09:39 | disposition home or self-care (01) ==
LOC: ORWHC2ENDO 07:25
PROVIDERS: ATTEND Surgery Plastic and Reconstructive Surgery
DX: Z12.11 Encounter for screening for malignant neoplasm of colon (principal); K29.50 Unspecified chronic gastritis without bleeding; K21.00 Gastro-esophageal reflux disease with esophagitis, without bleeding; K64.1 Second degree hemorrhoids; K44.9 Diaphragmatic hernia without obstruction or gangrene; J45.909 Unspecified asthma, uncomplicated; I10 Essential (primary) hypertension; G47.30 Sleep apnea, unspecified; E78.5 Hyperlipidemia, unspecified; E66.01 Morbid (severe) obesity due to excess calories; F32.A Depression, unspecified; E11.9 Type 2 diabetes mellitus without complications; G43.909 Migraine, unspecified, not intractable, without status migrainosus; D64.9 Anemia, unspecified; M19.90 Unspecified osteoarthritis, unspecified site; Z79.84 Long term (current) use of oral hypoglycemic drugs; Z79.899 Other long term (current) drug therapy; Z80.0 Family history of malignant neoplasm of digestive organs; Z88.1 Allergy status to other antibiotic agents; Z88.2 Allergy status to sulfonamides; Z90.49 Acquired absence of other specified parts of digestive tract; Z86.010 Personal history of colon polyps; Z79.51 Long term (current) use of inhaled steroids; Z91.048 Other nonmedicinal substance allergy status; Z68.39 Body mass index [BMI] 39.0-39.9, adult
CPT/HCPCS: 88305; 43239; J2001; J2704; G0105

== ENCOUNTER → 2023-07-14 | Outpatient (CLI) | payer MEDICARE, BC ==
--- NOTE | 2023-07-14 15:37 | P.BASOAP ---
Subjective Progress Note Date: 07/14/23 She has symptomatic hiatal hernia. Biopsies are negative. She is not getting enough eater. She ate whopper. EKG maybe. Assessment/Plan Plan: Date: Initial Weight: 134.445 kg Initial BMI: Current Weight: Current BMI: Type of Surgery: Total Volume in Band: Previous Volume: Volume Removed: Volume Added: Band Size:
[2023-07-14 16:15] VITALS: BP 136/90; PULSE 78; RESP 16; TEMP 97.8; BMI 38.1
== END ==
LOC: BARWHC3 13:35
PROVIDERS: ATTEND Surgery Plastic and Reconstructive Surgery
DX: E66.01 Morbid (severe) obesity due to excess calories (principal); K44.9 Diaphragmatic hernia without obstruction or gangrene; Z98.84 Bariatric surgery status; Z90.3 Acquired absence of stomach [part of]; Z88.2 Allergy status to sulfonamides; Z88.1 Allergy status to other antibiotic agents; Z91.09 Other allergy status, other than to drugs and biological substances; Z68.38 Body mass index [BMI] 38.0-38.9, adult
CPT/HCPCS: 99211

== ENCOUNTER → 2023-07-21 | Outpatient (CLI) | payer MEDICARE, BC | END | disposition home or self-care (01) | LOC: LABPAT 09:25 | PROVIDERS: ATTEND Surgery Plastic and Reconstructive Surgery | DX: Z01.818 Encounter for other preprocedural examination (principal); I51.89 Other ill-defined heart diseases; R94.31 Abnormal electrocardiogram [ECG] [EKG] | CPT/HCPCS: 93005 ==